=== PATIENT | male | born 1990 | race Two or more races ===

== ENCOUNTER 2023-01-05 21:50 | Inpatient (IN) | payer MEDICAID, OTHER ==
[~2023-01-05] VITALS: Ht 177.8 cm; Wt 63.0 kg
[2023-01-05] MEDS ORDERED: SODIUM CHLORIDE 0.9% 1,000 ML IV ONE ×2 (22:30)
[2023-01-05] MEDS ORDERED: DEXTROSE (50%) 50ML SYRG IV PRN (22:30)
[2023-01-05] MEDS ORDERED: INSULIN LANTUS (GLARGINE) 1 /0.01ml (100units/ml) SC ONE (22:30)
[2023-01-05] MEDS ORDERED: ONDANSETRON HCL 4 MG/2 ML VIAL IV ONE (22:30)
[2023-01-05] MEDS ORDERED: ACCU-CHEK COMFORT CURVE STRIP VI SCH (22:30)
[2023-01-05 22:54] LABS: Basophils # (auto) 0.1 10 ^3/uL (0-0.2); Basophils % (auto) 0.3 % (0.0-2.0); Eosinophils # (auto) 0 10 ^3/uL (0-0.8); Hematocrit 40.4 % (41.0-53.0); Hemoglobin 13.2 g/dL (13.5-17.5); Lymphocytes # (auto) 0.4 10 ^3/uL (0.4-5.4); Lymphocytes % (auto) 2.4 % (10.0-50.0); Mean Corpuscular Hemoglobin 29.9 pg (28.0-32.0); Mean Corpuscular Hgb Conc. 32.6 g/dL (32.0-36.0); Mean Corpuscular Volume 91.8 fL (80.0-100.0); Neutrophils # (auto) 14.3 10 ^3/uL (1.6-8.6); Neutrophils % (auto) 85.3 % (37.0-80.0); Nucleated Red Blood Cells % 0.1 %; Red Cell Distribution Width 15.7 % (11.8-14.3); White Blood Cell 16.8 10^3/uL (4.4-10.8)
[2023-01-05] MEDS ORDERED: SODIUM BICARBONATE 8.4 % INJ 50ML VIAL IV ONE ×2 (23:00)
[2023-01-05 23:08] LABS: Urine Bacteria NONE SEEN /hpf (None Seen); Urine Blood 1+ /uL (Negative); Urine Hyaline Cast FEW /lpf (0 - 2); Urine Mucus FEW (None Seen); Urine Specific Gravity 1.014 (1.001-1.035); Urine WBC 18 /hpf (0 - 3)
[2023-01-05 23:10] LABS: Albumin 3.8 g/dL (3.4-5.0); Calcium 6.9 mg/dL (8.5-10.1); Magnesium 2.4 mg/dL (1.6-2.6); Potassium 4.5 mmol/L (3.5-5.1)
[2023-01-05 23:14] LABS: BUN/Creatinine Ratio 19.7 (10.0-20.0); Bilirubin, Total 0.7 mg/dL (0.2-1.0); Phosphorus 4.8 mg/dL (2.5-4.90); Total Protein 7.8 g/dL (6.4-8.2)
[2023-01-05] MEDS ORDERED: InsuLIN REG 1unit/0.01ml Soln (100units/ml) ONE (23:19)
[2023-01-05] MEDS: InsuLIN R (HUMAN) 100 UNITS in SODIUM CHL 0.9% 99 ML IV SCH (23:24)
[2023-01-06] VITALS (13 sets, daily range): BP systolic 105–138; BP diastolic 71–105
[2023-01-06] MEDS: SODIUM CHLORIDE 0.9% 1,000 ML IV SCH ×2 (00:17→01:14)
[2023-01-06] MEDS: ACCU-CHEK COMFORT CURVE STRIP VI SCH ×16 (01:00→23:42)
[2023-01-06] MEDS ORDERED: NITROGLYCERIN 0.4 MG SL TAB SL PRN (01:15)
[2023-01-06] MEDS ORDERED: ONDANSETRON HCL 4 MG/2 ML VIAL IV PRN (01:15)
[2023-01-06] MEDS ORDERED: MORPHINE SULFATE INJ 2 MG/ml SYRG IV PRN (01:15)
[2023-01-06] MEDS ORDERED: SODIUM CHLORIDE 0.9% 1,000 ML IV SCH ×2 (02:30→04:30)
[2023-01-06] MEDS ORDERED: SODIUM BICARBONATE 8.4 % INJ 50ML VIAL IV ONE ×2 (04:28→09:15)
[2023-01-06] MEDS ORDERED: SODIUM BICARBONATE 50ML VIAL 100 ML in SOD CHL 0.45% 1,000 ML IV ONE (04:30)
[2023-01-06 06:47] LABS: BUN/Creatinine Ratio 17.6 (10.0-20.0); Calcium 7.6 mg/dL (8.5-10.1); Potassium 3.7 mmol/L (3.5-5.1)
[2023-01-06] MEDS ORDERED: D5W/SOD CHL 0.45% 1,000 ML IV ONE (08:30)
[2023-01-06] MEDS: InsuLIN R (HUMAN) 100 UNITS in SODIUM CHL 0.9% 99 ML IV SCH ×7 (08:30→23:40)
[2023-01-06] MEDS ORDERED: SODIUM BICARBONATE 50ML VIAL 50 ML in SOD CHL 0.45% 1,000 ML IV SCH (09:15)
[2023-01-06] MEDS: SODIUM BICARBONATE 50ML VIAL 50 ML in SOD CHL 0.45% 1,000 ML IV SCH ×3 (09:18→23:51)
[2023-01-06] MEDS ORDERED: INSULIN LANTUS (GLARGINE) 1 /0.01ml (100units/ml) SC SCH (10:00)
[2023-01-06] MEDS: PANTOPRAZOLE 40 MG/10 ML VIAL INJ IV SCH (10:54)
[2023-01-06 11:25] LABS: BUN/Creatinine Ratio 18.3 (10.0-20.0); Calcium 7.4 mg/dL (8.5-10.1)
[2023-01-06] MEDS ORDERED: POTASSIUM CHL 20 Meq TABLET PO ONE (13:45)
[2023-01-06 18:28] LABS: BUN/Creatinine Ratio 12.7 (10.0-20.0); Calcium 7.5 mg/dL (8.5-10.1)
[2023-01-06 19:11] LABS: Potassium 2.3 mmol/L (3.5-5.1)
[2023-01-06] MEDS ORDERED: POTASSIUM CHLORIDE 80 MEQ, LIDOCAINE 1% (LOCAL ANESTH.) 6 ML in SODIUM CHL 0.9% 500 ML IV ONE (19:30)
[2023-01-07] VITALS (25 sets, daily range): BP systolic 116–144; BP diastolic 72–101
[2023-01-07] MEDS: ACCU-CHEK COMFORT CURVE STRIP VI SCH ×6 (01:00→15:37)
[2023-01-07 04:43] LABS: Albumin 2.9 g/dL (3.4-5.0); Calcium 7.5 mg/dL (8.5-10.1); Potassium 3.2 mmol/L (3.5-5.1)
[2023-01-07 04:46] LABS: BUN/Creatinine Ratio 10.5 (10.0-20.0); Bilirubin, Total 0.7 mg/dL (0.2-1.0)
[2023-01-07] MEDS ORDERED: POTASSIUM CHL 20 Meq TABLET PO ONE (05:45)
[2023-01-07] MEDS ORDERED: DEXTROSE (50%) 50ML SYRG IV PRN (05:45)
[2023-01-07 06:40] LABS: Basophils # (auto) 0 10 ^3/uL (0-0.2); Basophils % (auto) 0.2 % (0.0-2.0); Eosinophils # (auto) 0 10 ^3/uL (0-0.8); Hematocrit 32.3 % (41.0-53.0); Hemoglobin 11.4 g/dL (13.5-17.5); Lymphocytes # (auto) 0.5 10 ^3/uL (0.4-5.4); Lymphocytes % (auto) 8.8 % (10.0-50.0); Mean Corpuscular Hemoglobin 29.8 pg (28.0-32.0); Mean Corpuscular Hgb Conc. 35.3 g/dL (32.0-36.0); Mean Corpuscular Volume 84.6 fL (80.0-100.0); Monocytes # (auto) 0.4 10 ^3/uL (0-1.3); Monocytes % (auto) 6.8 % (0.0-12.0); Neutrophils # (auto) 4.5 10 ^3/uL (1.6-8.6); Neutrophils % (auto) 84.2 % (37.0-80.0); Nucleated Red Blood Cells % 0.1 %; Red Blood Cells 3.82 10^6/uL (4.5-5.90); White Blood Cell 5.4 10^3/uL (4.4-10.8)
[2023-01-07] MEDS: InsuLIN REG 1unit/0.01ml Soln (100units/ml) SC SCH ×3 (09:01→15:40)
[2023-01-07] MEDS: PANTOPRAZOLE 40 MG/10 ML VIAL INJ IV SCH (09:57)
== END 2023-01-07 17:25 | disposition home or self-care (01) | DRG 420 ==
LOC: EDBD 21:50 → ER 21:56 → TELE 01-06 03:44 → ICU WEST 01-06 17:25
PROVIDERS: ADMIT Nurse Practitioner; ATTEND Internal Medicine
DX: E11.10 Type 2 diabetes mellitus with ketoacidosis without coma (principal); N17.9 Acute kidney failure, unspecified; E86.0 Dehydration; Z91.199 Patient's noncompliance with other medical treatment and regimen due to unspecified reason
CPT/HCPCS: 36415; 36600; 80048; 80053; 81001; 82010; 82805; 82962; 83690; 83735; 83930; 84100; 85025; 87081; 96361; 96374; 96375; 99291; C9113; G0378; J1815; J2001; J2405

== ENCOUNTER 2023-04-28 13:03 | Inpatient (IN) | payer MEDICAID ==
[~2023-04-28] VITALS: Ht 165.1 cm; Wt 64.4 kg
[2023-04-28 13:25] VITALS: PULSE 124; RESP 25; O2SAT 100
[2023-04-28] MEDS ORDERED: ACCU-CHEK COMFORT CURVE STRIP VI ONE (13:30)
[2023-04-28] MEDS ORDERED: INSULIN LANTUS (GLARGINE) 1 /0.01ml (100units/ml) SC ONE (14:00)
[2023-04-28] MEDS ORDERED: ONDANSETRON HCL 4 MG/2 ML VIAL IM ONE (14:00)
[2023-04-28] MEDS ORDERED: InsuLIN R (HUMAN) 100 UNITS in SODIUM CHL 0.9% 99 ML IV SCH (14:00)
[2023-04-28] MEDS ORDERED: DEXTROSE (50%) 50ML SYRG IV PRN ×2 (14:00→17:15)
[2023-04-28] MEDS ORDERED: SODIUM CHLORIDE 0.9% 2,000 ML IV ONE ×2 (14:00→16:45)
[2023-04-28 14:01] LABS: Basophils # (auto) 0.2 10 ^3/uL (0-0.2); Basophils % (auto) 1.3 % (0.0-2.0); Eosinophils # (auto) 0 10 ^3/uL (0-0.8); Hematocrit 45.2 % (41.0-53.0); Lymphocytes # (auto) 0.2 10 ^3/uL (0.4-5.4); Lymphocytes % (auto) 1.2 % (10.0-50.0); Mean Corpuscular Hemoglobin 31.7 pg (28.0-32.0); Mean Corpuscular Hgb Conc. 33.3 g/dL (32.0-36.0); Mean Corpuscular Volume 95.3 fL (80.0-100.0); Monocytes # (auto) 1.2 10 ^3/uL (0-1.3); Monocytes % (auto) 8.1 % (0.0-12.0); Neutrophils # (auto) 12.7 10 ^3/uL (1.6-8.6); Neutrophils % (auto) 89.4 % (37.0-80.0); Red Blood Cells 4.74 10^6/uL (4.5-5.90); Red Cell Distribution Width 15.5 % (11.8-14.3); White Blood Cell 14.2 10^3/uL (4.4-10.8)
[2023-04-28 14:16] LABS: Alanine Aminotransferase 99 U/L (7-40); Albumin 5.8 g/dL (3.2-4.8); Alkaline Phosphatase 132 U/L (46-116); Anion Gap 30.00001 (5-15); Aspartate Aminotransferase 43 U/L (13-40); BUN/Creatinine Ratio 15.2 (10.0-20.0); Bilirubin, Total 1.1 mg/dL (0.2-1.0); Blood Alcohol < 3.0 mg/dL (<10); Blood Urea Nitrogen 32 mg/dL (9-23); Calcium 8.8 mg/dL (8.7-10.4); Chloride 88 mmol/L (98-107); Potassium 5.2 mmol/L (3.5-5.1); Sodium 128 mmol/L (136-145); Total Protein 8.4 g/dL (5.7-8.2)
[2023-04-28 14:49] LABS: Carbon Dioxide < 10 mmol/L (20-30); Glucose 593 mg/dL (74-106)
[2023-04-28] MEDS: ACCU-CHEK COMFORT CURVE STRIP VI SCH ×7 (15:27→22:26)
[2023-04-28] MEDS ORDERED: DOCUSATE SOD 100 MG CAP PO PRN (17:15)
[2023-04-28] MEDS ORDERED: ONDANSETRON HCL 4 MG/2 ML VIAL IV PRN (17:15)
[2023-04-28] MEDS ORDERED: LORazepam 2MG/ML-1ML VIAL IV PRN (17:15)
[2023-04-28] MEDS ORDERED: MORPHINE SULFATE INJ 2 MG/ml SYRG IV PRN (17:15)
[2023-04-28 17:37] LABS: Urine Bacteria NONE SEEN /hpf (None Seen); Urine Blood TRACE /uL (Negative); Urine Clarity Clear (Clear); Urine Color Colorless (Yellow); Urine Protein, UAD 1+ (Negative); Urine Specific Gravity 1.016 (1.001-1.035); Urine Urobilinogen Normal (Negative); Urine WBC 1 /hpf (0 - 3)
[2023-04-28] MEDS: chlordiazePOXIDE HCL 25 MG CAP PO SCH (17:52)
[2023-04-28 17:59] LABS: Amphetamine Screen, Urine Neg (NEGATIVE); Barbiturate Scree,Urine Neg (NEGATIVE); Benzodiazephine Screen, Urine Neg (NEGATIVE); Cocaine Screen, Urine Neg (NEGATIVE)
[2023-04-28 18:00] LABS: Creatinine, Urine 22.02 mg/dL (30.0-125.0)
[2023-04-28 18:00] LABS: Cannabinoid Screen, Urine Neg (NEGATIVE); Opiate Scree,Urine Neg (NEGATIVE); Phencyclidine Screen, Urine Neg (NEGATIVE)
[2023-04-28 18:35] LABS: Blood Alcohol < 3.0 mg/dL (<10); Magnesium 2.4 mg/dL (1.6-2.6)
[2023-04-28 18:36] LABS: Phosphorus 3.5 mg/dL (2.4-5.1)
[2023-04-28 18:43] LABS: Chloride 99 mmol/L (98-107); Potassium 4.1 mmol/L (3.5-5.1)
[2023-04-28 18:44] LABS: Anion Gap 26.00001 (5-15)
[2023-04-28 18:45] LABS: Calcium 8.8 mg/dL (8.7-10.4)
[2023-04-28 18:50] LABS: BUN/Creatinine Ratio 9.8 (10.0-20.0); Blood Urea Nitrogen 19 mg/dL (9-23)
[2023-04-28] MEDS: SODIUM CHLORIDE 0.9% 1,000 ML IV SCH ×4 (18:55→22:22)
[2023-04-28 19:04] LABS: Glucose 312 mg/dL (74-106); Sodium 135 mmol/L (136-145)
[2023-04-28 19:05] LABS: Carbon Dioxide < 10 mmol/L (20-30)
[2023-04-28 19:32] LABS: INR 0.97 (0.9-1.15); Prothrombin Time 10.2 sec (9.3-11.8)
[2023-04-28 19:53] LABS: Base Excess -20.2 mmol/L (-2.0-2.0)
[2023-04-28] MEDS ORDERED: SODIUM BICARBONATE 8.4 % INJ 50ML VIAL IV ONE ×2 (20:00)
[2023-04-28] MEDS ORDERED: D5W/SOD CHLO 0.9% 1,000 ML IV SCH (20:15)
[2023-04-28 20:30] VITALS: PULSE 104; RESP 19; O2SAT 96
[2023-04-28] MEDS ORDERED: SODIUM BICARBONATE 50ML VIAL 150 ML in SOD CHL 0.45% 1,000 ML IV SCH (20:30)
[2023-04-28] MEDS ORDERED: SODIUM CHLORIDE 0.9% 1,000 ML IV SCH ×2 (21:15→23:15)
[2023-04-28 23:16] LABS: Anion Gap 20 (5-15); Carbon Dioxide 13 mmol/L (20-30); Sodium 142 mmol/L (136-145)
[2023-04-28 23:17] LABS: Calcium 8.2 mg/dL (8.7-10.4)
[2023-04-28 23:18] LABS: Base Excess -10.7 mmol/L (-2.0-2.0)
[2023-04-28 23:22] LABS: BUN/Creatinine Ratio 14.4 (10.0-20.0); Blood Urea Nitrogen 21 mg/dL (9-23)
[2023-04-28 23:26] LABS: Chloride 109 mmol/L (98-107); Glucose 187 mg/dL (74-106)
[2023-04-29] VITALS (24 sets, daily range): BP systolic 105–136; BP diastolic 66–87; PULSE 65–108; RESP 10–21; TEMP 97.8; O2SAT 98–100
[2023-04-29] MEDS ORDERED: DEXTROSE (50%) 50ML SYRG IV PRN ×2 (00:15→01:00)
[2023-04-29] MEDS: ACCU-CHEK COMFORT CURVE STRIP VI SCH ×15 (01:13→22:30)
[2023-04-29] MEDS: InsuLIN R (HUMAN) 100 UNITS in SODIUM CHL 0.9% 99 ML IV SCH ×2 (01:20→07:30)
[2023-04-29] MEDS: chlordiazePOXIDE HCL 25 MG CAP PO SCH ×4 (01:20→21:35)
[2023-04-29] MEDS: SODIUM CHLORIDE 0.9% 1,000 ML IV SCH ×2 (01:30→03:42)
[2023-04-29] MEDS ORDERED: ACCU-CHEK COMFORT CURVE STRIP VI SCH (04:00)
[2023-04-29] MEDS ORDERED: InsuLIN REG 1unit/0.01ml Soln (100units/ml) SC SCH (04:00)
[2023-04-29 05:21] LABS: Basophils # (auto) 0 10 ^3/uL (0-0.2); Basophils % (auto) 0.4 % (0.0-2.0); Eosinophils # (auto) 0 10 ^3/uL (0-0.8); Hematocrit 37.6 % (41.0-53.0); Hemoglobin 12.9 g/dL (13.5-17.5); Lymphocytes # (auto) 0.2 10 ^3/uL (0.4-5.4); Lymphocytes % (auto) 2.5 % (10.0-50.0); Mean Corpuscular Hemoglobin 31.5 pg (28.0-32.0); Mean Corpuscular Hgb Conc. 34.4 g/dL (32.0-36.0); Mean Corpuscular Volume 91.8 fL (80.0-100.0); Monocytes # (auto) 0.7 10 ^3/uL (0-1.3); Monocytes % (auto) 7.7 % (0.0-12.0); Neutrophils # (auto) 7.6 10 ^3/uL (1.6-8.6); Neutrophils % (auto) 89.4 % (37.0-80.0); Red Blood Cells 4.09 10^6/uL (4.5-5.90); Red Cell Distribution Width 15.4 % (11.8-14.3); White Blood Cell 8.5 10^3/uL (4.4-10.8)
[2023-04-29 05:39] LABS: Alanine Aminotransferase 64 U/L (7-40); Alkaline Phosphatase 89 U/L (46-116); Anion Gap 17 (5-15); Aspartate Aminotransferase 26 U/L (13-40); BUN/Creatinine Ratio 12.6 (10.0-20.0); Blood Urea Nitrogen 16 mg/dL (9-23); Calcium 8.6 mg/dL (8.7-10.4); Carbon Dioxide 16 mmol/L (20-30); Chloride 112 mmol/L (98-107); Glucose 127 mg/dL (74-106); Sodium 145 mmol/L (136-145)
[2023-04-29 05:40] LABS: Albumin 4.7 g/dL (3.2-4.8); Bilirubin, Total 0.8 mg/dL (0.2-1.0)
[2023-04-29 05:58] LABS: Potassium 2.9 mmol/L (3.5-5.1)
[2023-04-29] MEDS: POTASSIUM CHL 20MEQ/100ML 100 ML IV SCH ×5 (07:51→23:15)
[2023-04-29] MEDS ORDERED: INSULIN LANTUS (GLARGINE) 1 /0.01ml (100units/ml) SC SCH (10:00)
[2023-04-29] MEDS: PANTOPRAZOLE 40 MG/10 ML VIAL INJ IV SCH (10:24)
[2023-04-29] MEDS: D5W/SOD CHL 0.45% 1,000 ML IV SCH ×2 (11:42→20:15)
[2023-04-29] MEDS: FOLIC ACID 1 MG, MULTIPLE VITAMIN 10 ML, MAGNESIUM SULF SDV 50% 8 MEQ, THIAMINE INJ 100... INJ SCH ×5 (12:00)
[2023-04-29 12:07] LABS: Hepatitis B Surface Antigen Negative (Negative)
[2023-04-29 12:28] LABS: Hepatitis A Ab IgM Negative
[2023-04-29 12:29] LABS: Hepatitis B Core IgM Negative; Hepatitis C Antibody Negative (Negative)
[2023-04-29 12:45] LABS: Chloride 116 mmol/L (98-107); Potassium 3.4 mmol/L (3.5-5.1); Sodium 146 mmol/L (136-145)
[2023-04-29 12:46] LABS: Anion Gap 17 (5-15); Calcium 8.4 mg/dL (8.7-10.4); Carbon Dioxide 13 mmol/L (20-30)
[2023-04-29 12:51] LABS: BUN/Creatinine Ratio 10.5 (10.0-20.0); Blood Urea Nitrogen 12 mg/dL (9-23); Glucose 140 mg/dL (74-106)
[2023-04-29 18:45] LABS: Chloride 114 mmol/L (98-107); Sodium 146 mmol/L (136-145)
[2023-04-29 18:46] LABS: Anion Gap 16 (5-15); Calcium 8.9 mg/dL (8.7-10.4); Carbon Dioxide 16 mmol/L (20-30)
[2023-04-29 18:51] LABS: Blood Urea Nitrogen 10 mg/dL (9-23); Glucose 178 mg/dL (74-106)
[2023-04-29 18:54] LABS: Potassium 2.9 mmol/L (3.5-5.1)
[2023-04-29 19:39] LABS: Base Excess -13.3 mmol/L (-2.0-2.0)
[2023-04-29 19:52] LABS: Magnesium 2.1 mg/dL (1.6-2.6)
[2023-04-29 19:54] LABS: Phosphorus 0.7 mg/dL (2.4-5.1)
[2023-04-29 22:17] LABS: Chloride 115 mmol/L (98-107); Sodium 146 mmol/L (136-145)
[2023-04-29 22:18] LABS: Anion Gap 15 (5-15); Carbon Dioxide 16 mmol/L (20-30)
[2023-04-29 22:19] LABS: Calcium 8.9 mg/dL (8.7-10.4)
[2023-04-29 22:23] LABS: BUN/Creatinine Ratio 6.5 (10.0-20.0); Blood Urea Nitrogen 7 mg/dL (9-23); Glucose 188 mg/dL (74-106)
[2023-04-29 22:49] LABS: Potassium 2.8 mmol/L (3.5-5.1)
[2023-04-29] MEDS ORDERED: POTASSIUM PHOSPHATE 22 MEQ in SODIUM CHL 0.9% 100 ML IV ONE (23:00)
[2023-04-29] MEDS ORDERED: POTASSIUM PHOSPHATE IV ONE ×4 (23:15)
[2023-04-29] MEDS ORDERED: SODIUM CHL 0.9% IV ONE ×4 (23:15)
[2023-04-30] VITALS (47 sets, daily range): BP systolic 96–140; BP diastolic 51–97; PULSE 56–85; RESP 10–30; TEMP 97.9–98.8; O2SAT 94–100
[2023-04-30] MEDS: ACCU-CHEK COMFORT CURVE STRIP VI SCH ×16 (01:30→22:35)
[2023-04-30] MEDS: InsuLIN R (HUMAN) 100 UNITS in SODIUM CHL 0.9% 99 ML IV SCH (02:00)
[2023-04-30] MEDS: D5W/SOD CHL 0.45% 1,000 ML IV SCH ×3 (03:15→20:16)
[2023-04-30 05:13] LABS: Anion Gap 13 (5-15); Carbon Dioxide 19 mmol/L (20-30); Chloride 114 mmol/L (98-107); Sodium 146 mmol/L (136-145)
[2023-04-30 05:15] LABS: Calcium 8.8 mg/dL (8.7-10.4)
[2023-04-30 05:18] LABS: Basophils # (auto) 0 10 ^3/uL (0-0.2); Eosinophils # (auto) 0 10 ^3/uL (0-0.8); Monocytes # (auto) 0.5 10 ^3/uL (0-1.3); Neutrophils # (auto) 4.4 10 ^3/uL (1.6-8.6)
[2023-04-30 05:19] LABS: BUN/Creatinine Ratio 7.3 (10.0-20.0); Blood Urea Nitrogen 7 mg/dL (9-23); Glucose 184 mg/dL (74-106)
[2023-04-30 05:20] LABS: Magnesium 1.9 mg/dL (1.6-2.6)
[2023-04-30 05:21] LABS: Basophils % (auto) 0.2 % (0.0-2.0); Eosinophils % (auto) 0.2 % (0.0-7.0); Hematocrit 35.5 % (41.0-53.0); Hemoglobin 12.2 g/dL (13.5-17.5); Lymphocytes # (auto) 0.3 10 ^3/uL (0.4-5.4); Lymphocytes % (auto) 6.7 % (10.0-50.0); Mean Corpuscular Hemoglobin 31.6 pg (28.0-32.0); Mean Corpuscular Hgb Conc. 34.3 g/dL (32.0-36.0); Monocytes % (auto) 9.2 % (0.0-12.0); Neutrophils % (auto) 83.7 % (37.0-80.0); Nucleated Red Blood Cells % 0.2 %; Red Blood Cells 3.86 10^6/uL (4.5-5.90); White Blood Cell 5.2 10^3/uL (4.4-10.8)
[2023-04-30 05:22] LABS: Phosphorus 0.7 mg/dL (2.4-5.1)
[2023-04-30] MEDS ORDERED: SODIUM CHL 0.9% IV ONE (09:00)
[2023-04-30] MEDS ORDERED: POTASSIUM CHL 20MEQ/100ML 100 ML IV ONE (09:00)
[2023-04-30] MEDS ORDERED: POTASSIUM PHOSPHATE IV ONE (09:00)
[2023-04-30] MEDS ORDERED: chlordiazePOXIDE HCL 25 MG CAP PO SCH (10:00)
[2023-04-30] MEDS: PANTOPRAZOLE 40 MG/10 ML VIAL INJ IV SCH (10:14)
[2023-04-30 10:52] LABS: Calcium 8.6 mg/dL (8.5-10.1); Carbon Dioxide 19 mmol/L (20-30)
[2023-04-30 10:58] LABS: BUN/Creatinine Ratio 7.2 (10.0-20.0); Blood Urea Nitrogen 6 mg/dL (9-23); Glucose 196 mg/dL (74-106)
[2023-04-30 11:36] LABS: Anion Gap 13 (5-15); Chloride 114 mmol/L (98-107); Sodium 146 mmol/L (136-145)
[2023-04-30 12:33] LABS: Potassium 2.7 mmol/L (3.5-5.1)
[2023-04-30] MEDS: FOLIC ACID 1 MG, MULTIPLE VITAMIN 10 ML, MAGNESIUM SULF SDV 50% 8 MEQ, THIAMINE INJ 100... INJ SCH ×5 (12:53)
[2023-04-30] MEDS ORDERED: POTASSIUM CHL 20MEQ/100ML 100 ML IV SCH (13:30)
[2023-04-30] MEDS: POTASSIUM CHL 20MEQ/100ML 100 ML IV SCH ×2 (13:39→15:31)
[2023-04-30] MEDS: GABAPENTIN 300 MG CAP PO SCH ×2 (14:09→22:35)
[2023-04-30 14:49] LABS: Carbon Dioxide 20 mmol/L (20-30)
[2023-04-30 14:50] LABS: Calcium 8.4 mg/dL (8.5-10.1)
[2023-04-30 14:54] LABS: BUN/Creatinine Ratio 8.1 (10.0-20.0); Blood Urea Nitrogen 6 mg/dL (9-23); Glucose 156 mg/dL (74-106)
[2023-04-30 15:12] LABS: Anion Gap 11 (5-15); Chloride 115 mmol/L (98-107); Potassium 3.1 mmol/L (3.5-5.1); Sodium 146 mmol/L (136-145)
[2023-04-30 18:51] LABS: Chloride 113 mmol/L (98-107); Potassium 3.2 mmol/L (3.5-5.1); Sodium 144 mmol/L (136-145)
[2023-04-30 18:52] LABS: Anion Gap 13 (5-15); Calcium 8.7 mg/dL (8.7-10.4); Carbon Dioxide 18 mmol/L (20-30)
[2023-04-30 18:57] LABS: BUN/Creatinine Ratio 6.3 (10.0-20.0); Blood Urea Nitrogen 5 mg/dL (9-23); Glucose 165 mg/dL (74-106)
[2023-04-30 22:18] LABS: Chloride 115 mmol/L (98-107); Sodium 144 mmol/L (136-145)
[2023-04-30 22:19] LABS: Anion Gap 10 (5-15); Carbon Dioxide 19 mmol/L (20-30)
[2023-04-30 22:20] LABS: Calcium 8.8 mg/dL (8.7-10.4)
[2023-04-30 22:24] LABS: Glucose 160 mg/dL (74-106)
[2023-04-30 22:25] LABS: BUN/Creatinine Ratio 6.2 (10.0-20.0); Blood Urea Nitrogen < 5 mg/dL (9-23)
[2023-05-01] VITALS (24 sets, daily range): BP systolic 106–139; BP diastolic 64–99; PULSE 55–90; RESP 10–19; TEMP 97.8–98.9; O2SAT 91–100
[2023-05-01] MEDS: ACCU-CHEK COMFORT CURVE STRIP VI SCH ×10 (00:46→22:31)
[2023-05-01 01:10] LABS: Chloride 114 mmol/L (98-107); Sodium 145 mmol/L (136-145)
[2023-05-01 01:11] LABS: Anion Gap 13 (5-15); Calcium 8.6 mg/dL (8.7-10.4); Carbon Dioxide 18 mmol/L (20-30)
[2023-05-01 01:16] LABS: BUN/Creatinine Ratio 7.2 (10.0-20.0); Blood Urea Nitrogen 6 mg/dL (9-23); Glucose 211 mg/dL (74-106)
[2023-05-01] MEDS: D5W/SOD CHL 0.45% 1,000 ML IV SCH ×3 (03:45→20:16)
[2023-05-01 04:59] LABS: Basophils # (auto) 0 10 ^3/uL (0-0.2); Eosinophils # (auto) 0 10 ^3/uL (0-0.8); Eosinophils % (auto) 0.7 % (0.0-7.0); Hemoglobin 12.9 g/dL (13.5-17.5); Lymphocytes # (auto) 0.6 10 ^3/uL (0.4-5.4); Monocytes # (auto) 0.4 10 ^3/uL (0-1.3); Nucleated Red Blood Cells % 0.1 %; Red Cell Distribution Width 15.9 % (11.8-14.3)
[2023-05-01 05:01] LABS: Basophils % (auto) 0.3 % (0.0-2.0); Hematocrit 37.3 % (41.0-53.0); Lymphocytes % (auto) 15.2 % (10.0-50.0); Mean Corpuscular Hemoglobin 31.4 pg (28.0-32.0); Mean Corpuscular Hgb Conc. 34.5 g/dL (32.0-36.0); Monocytes % (auto) 10.1 % (0.0-12.0); Neutrophils # (auto) 2.7 10 ^3/uL (1.6-8.6); Neutrophils % (auto) 73.7 % (37.0-80.0); White Blood Cell 3.7 10^3/uL (4.4-10.8)
[2023-05-01 05:05] LABS: Chloride 113 mmol/L (98-107); Sodium 144 mmol/L (136-145)
[2023-05-01 05:06] LABS: Anion Gap 11 (5-15); Carbon Dioxide 20 mmol/L (20-30)
[2023-05-01 05:07] LABS: Calcium 8.6 mg/dL (8.7-10.4)
[2023-05-01 05:11] LABS: Glucose 249 mg/dL (74-106)
[2023-05-01 05:14] LABS: Phosphorus 1.5 mg/dL (2.4-5.1)
[2023-05-01 05:23] LABS: BUN/Creatinine Ratio 6.2 (10.0-20.0); Blood Urea Nitrogen < 5 mg/dL (9-23); Potassium 2.9 mmol/L (3.5-5.1)
[2023-05-01 05:34] LABS: Triglycerides 118 mg/dL (< 150)
[2023-05-01 05:35] LABS: LDL Cholesterol 105 mg/dL (< 100)
[2023-05-01 05:36] LABS: Cholesterol 191 mg/dL (< 200); HDL Cholesterol 59 mg/dL (40-59)
[2023-05-01] MEDS: GABAPENTIN 300 MG CAP PO SCH ×3 (06:43→22:31)
[2023-05-01] MEDS ORDERED: chlordiazePOXIDE HCL 25 MG CAP PO SCH (07:00)
[2023-05-01] MEDS: POTASSIUM CHL 20MEQ/100ML 100 ML IV SCH ×3 (07:08→11:54)
[2023-05-01] MEDS: PANTOPRAZOLE 40 MG/10 ML VIAL INJ IV SCH (09:35)
[2023-05-01] MEDS ORDERED: MAALOX PLUS or MAALOX 30 ML PO PRN (10:45)
[2023-05-01 10:57] LABS: Chloride 113 mmol/L (98-107); Potassium 3.1 mmol/L (3.5-5.1); Sodium 144 mmol/L (136-145)
[2023-05-01 10:58] LABS: Anion Gap 9 (5-15); Carbon Dioxide 22 mmol/L (20-30)
[2023-05-01 10:59] LABS: Calcium 8.6 mg/dL (8.7-10.4)
[2023-05-01 11:03] LABS: Glucose 236 mg/dL (74-106)
[2023-05-01 11:04] LABS: BUN/Creatinine Ratio 6.2 (10.0-20.0); Blood Urea Nitrogen < 5 mg/dL (9-23)
[2023-05-01] MEDS ORDERED: DEXTROSE (50%) 50ML SYRG IV PRN (11:15)
[2023-05-01] MEDS ORDERED: INSULIN LANTUS (GLARGINE) 1 /0.01ml (100units/ml) SC ONE (11:30)
[2023-05-01] MEDS: InsuLIN REG 1unit/0.01ml Soln (100units/ml) SC SCH ×2 (11:42→17:03)
[2023-05-01] MEDS: FOLIC ACID 1 MG, MULTIPLE VITAMIN 10 ML, MAGNESIUM SULF SDV 50% 8 MEQ, THIAMINE INJ 100... INJ SCH ×5 (11:43)
[2023-05-01] MEDS ORDERED: INSULIN LANTUS (GLARGINE) 1 /0.01ml (100units/ml) SC SCH (22:00)
[2023-05-01] MEDS ORDERED: InsuLIN REG 1unit/0.01ml Soln (100units/ml) SC SCH (22:00)
[2023-05-02] VITALS (14 sets, daily range): BP systolic 104–141; BP diastolic 67–103; PULSE 57–90; RESP 8–22; TEMP 97.5–98.4; O2SAT 85–100
[2023-05-02] MEDS: D5W/SOD CHL 0.45% 1,000 ML IV SCH ×3 (03:15→22:11)
[2023-05-02 05:16] LABS: Basophils # (auto) 0 10 ^3/uL (0-0.2); Basophils % (auto) 0.3 % (0.0-2.0); Eosinophils # (auto) 0.1 10 ^3/uL (0-0.8); Eosinophils % (auto) 2.1 % (0.0-7.0); Hemoglobin 12.4 g/dL (13.5-17.5); Lymphocytes # (auto) 0.6 10 ^3/uL (0.4-5.4); Lymphocytes % (auto) 18.8 % (10.0-50.0); Mean Corpuscular Hemoglobin 31.1 pg (28.0-32.0); Mean Corpuscular Hgb Conc. 34.5 g/dL (32.0-36.0); Mean Corpuscular Volume 90.1 fL (80.0-100.0); Monocytes # (auto) 0.4 10 ^3/uL (0-1.3); Monocytes % (auto) 11.1 % (0.0-12.0); Neutrophils # (auto) 2.3 10 ^3/uL (1.6-8.6); Neutrophils % (auto) 67.7 % (37.0-80.0); Red Blood Cells 3.99 10^6/uL (4.5-5.90); Red Cell Distribution Width 16.1 % (11.8-14.3); White Blood Cell 3.4 10^3/uL (4.4-10.8)
[2023-05-02 05:30] LABS: Calcium 8.8 mg/dL (8.7-10.4); Chloride 111 mmol/L (98-107); Potassium 3.1 mmol/L (3.5-5.1); Sodium 142 mmol/L (136-145)
[2023-05-02 05:31] LABS: Anion Gap 7 (5-15); Carbon Dioxide 24 mmol/L (20-30)
[2023-05-02 05:36] LABS: BUN/Creatinine Ratio 8.5 (10.0-20.0); Blood Urea Nitrogen 7 mg/dL (9-23); Glucose 327 mg/dL (74-106)
[2023-05-02 05:37] LABS: Magnesium 2.1 mg/dL (1.6-2.6)
[2023-05-02 05:38] LABS: Phosphorus 1.5 mg/dL (2.4-5.1)
[2023-05-02] MEDS: GABAPENTIN 300 MG CAP PO SCH ×3 (06:19→22:08)
[2023-05-02] MEDS: ACCU-CHEK COMFORT CURVE STRIP VI SCH ×4 (06:53→22:10)
[2023-05-02] MEDS: InsuLIN REG 1unit/0.01ml Soln (100units/ml) SC SCH ×3 (06:54→17:00)
[2023-05-02] MEDS: PANTOPRAZOLE 40 MG/10 ML VIAL INJ IV SCH (09:21)
[2023-05-02] MEDS ORDERED: NEUTRA-PHOS TABLET PO ONE (09:30)
[2023-05-02] MEDS ORDERED: DEXTROSE (50%) 50ML SYRG IV PRN (09:30)
[2023-05-02] MEDS ORDERED: POTASSIUM CHL 20 Meq TABLET PO SCH (10:00)
[2023-05-02] MEDS ORDERED: POTASSIUM EFFERVESENT TAB 25 MEQ PO ONE (10:15)
[2023-05-02] MEDS: FOLIC ACID 1 MG, MULTIPLE VITAMIN 10 ML, MAGNESIUM SULF SDV 50% 8 MEQ, THIAMINE INJ 100... INJ SCH ×5 (12:13)
[2023-05-02] MEDS ORDERED: POTASSIUM PHOSPHATE 22 MEQ in SODIUM CHL 0.9% 100 ML IV ONE (16:15)
[2023-05-02] MEDS ORDERED: InsuLIN REG 1unit/0.01ml Soln (100units/ml) SC SCH (22:00)
[2023-05-02] MEDS ORDERED: INSULIN LANTUS (GLARGINE) 1 /0.01ml (100units/ml) SC SCH (22:00)
[2023-05-03] VITALS (8 sets, daily range): BP systolic 106–146; BP diastolic 71–90; PULSE 60–86; RESP 18–20; TEMP 97.6–98.1; O2SAT 94–100
[2023-05-03] MEDS: D5W/SOD CHL 0.45% 1,000 ML IV SCH ×3 (03:15→19:15)
[2023-05-03] MEDS: GABAPENTIN 300 MG CAP PO SCH ×3 (04:58→22:05)
[2023-05-03 06:30] LABS: Basophils # (auto) 0 10 ^3/uL (0-0.2); Basophils % (auto) 0.3 % (0.0-2.0); Eosinophils # (auto) 0.1 10 ^3/uL (0-0.8); Eosinophils % (auto) 2.2 % (0.0-7.0); Hematocrit 35.8 % (41.0-53.0); Hemoglobin 12.4 g/dL (13.5-17.5); Lymphocytes # (auto) 0.5 10 ^3/uL (0.4-5.4); Lymphocytes % (auto) 14.4 % (10.0-50.0); Mean Corpuscular Hemoglobin 31.2 pg (28.0-32.0); Mean Corpuscular Hgb Conc. 34.5 g/dL (32.0-36.0); Mean Corpuscular Volume 90.3 fL (80.0-100.0); Monocytes # (auto) 0.4 10 ^3/uL (0-1.3); Monocytes % (auto) 12.9 % (0.0-12.0); Neutrophils # (auto) 2.3 10 ^3/uL (1.6-8.6); Neutrophils % (auto) 70.2 % (37.0-80.0); Nucleated Red Blood Cells % 0.1 %; Red Blood Cells 3.97 10^6/uL (4.5-5.90); Red Cell Distribution Width 15.4 % (11.8-14.3); White Blood Cell 3.3 10^3/uL (4.4-10.8)
[2023-05-03 06:44] LABS: INR 0.98 (0.9-1.15); Partial Thromboplastin Time 21.8 SEC (24.5-34.5); Prothrombin Time 10.3 sec (9.3-11.8)
[2023-05-03] MEDS: ACCU-CHEK COMFORT CURVE STRIP VI SCH ×4 (06:44→22:08)
[2023-05-03] MEDS: InsuLIN REG 1unit/0.01ml Soln (100units/ml) SC SCH ×3 (06:45→17:00)
[2023-05-03 06:51] LABS: Anion Gap 6 (5-15); Carbon Dioxide 30 mmol/L (20-30); Chloride 104 mmol/L (98-107); Potassium 3.3 mmol/L (3.5-5.1); Sodium 140 mmol/L (136-145)
[2023-05-03 06:52] LABS: Calcium 9.1 mg/dL (8.7-10.4)
[2023-05-03 06:57] LABS: BUN/Creatinine Ratio 10.8 (10.0-20.0); Blood Urea Nitrogen 9 mg/dL (9-23); Glucose 318 mg/dL (74-106)
[2023-05-03 06:58] LABS: Magnesium 1.7 mg/dL (1.6-2.6)
[2023-05-03 06:59] LABS: Phosphorus 2.9 mg/dL (2.4-5.1)
[2023-05-03] MEDS ORDERED: POTASSIUM CHL 20MEQ/100ML 100 ML IV ONE (08:30)
[2023-05-03] MEDS ORDERED: diphenhdrAMINE HCL 50 MG/1 ML VL ONE (08:45)
[2023-05-03] MEDS ORDERED: LIDOCAINE VISCOUS 2% 15ML UD ONE (08:45)
[2023-05-03] MEDS ORDERED: BENZOCAINE (DENTAL) 20 % SPRAY 60ML MT ONE (08:46)
[2023-05-03 08:58] LABS: Hepatitis B Surface Antigen Negative (Negative)
[2023-05-03 09:19] LABS: Hepatitis C Antibody Negative (Negative)
[2023-05-03] MEDS: MIDAZOLAM HCL 5 MG/ML-1ML VIAL ONE ×3 (11:18→11:24)
[2023-05-03] MEDS: fentaNYL CITRATE 100 MCG/2 ML VL ONE ×2 (11:18→11:21)
[2023-05-03] MEDS ORDERED: fentaNYL CITRATE 100 MCG/2 ML VL ONE (11:28)
[2023-05-03] MEDS: INSULIN LANTUS (GLARGINE) 1 /0.01ml (100units/ml) SC SCH ×2 (12:00→22:08)
[2023-05-03] MEDS: SUCRALFATE 1 GM/10 ML ORAL SUSP PO SCH ×2 (18:33→22:05)
[2023-05-03] MEDS: PANTOPRAZOLE 40 MG/10 ML VIAL INJ IV SCH (22:05)
[2023-05-03] MEDS: FOLIC ACID 1 MG, MULTIPLE VITAMIN 10 ML, MAGNESIUM SULF SDV 50% 8 MEQ, THIAMINE INJ 100... INJ SCH ×5 (22:08)
[2023-05-04] MEDS: D5W/SOD CHL 0.45% 1,000 ML IV SCH ×2 (03:15→11:15)
[2023-05-04 05:00] VITALS: BP 121/74; PULSE 64; RESP 18; TEMP 98.2; O2SAT 99
[2023-05-04] MEDS: GABAPENTIN 300 MG CAP PO SCH ×2 (06:26→14:14)
[2023-05-04] MEDS: InsuLIN REG 1unit/0.01ml Soln (100units/ml) SC SCH ×3 (06:26→16:56)
[2023-05-04] MEDS: SUCRALFATE 1 GM/10 ML ORAL SUSP PO SCH ×3 (06:26→17:27)
[2023-05-04] MEDS: ACCU-CHEK COMFORT CURVE STRIP VI SCH ×3 (06:27→16:56)
[2023-05-04 06:49] LABS: Basophils # (auto) 0 10 ^3/uL (0-0.2); Basophils % (auto) 0.2 % (0.0-2.0); Eosinophils # (auto) 0.1 10 ^3/uL (0-0.8); Eosinophils % (auto) 4.2 % (0.0-7.0); Hematocrit 35.2 % (41.0-53.0); Hemoglobin 12.1 g/dL (13.5-17.5); Lymphocytes # (auto) 0.7 10 ^3/uL (0.4-5.4); Lymphocytes % (auto) 21.6 % (10.0-50.0); Mean Corpuscular Hemoglobin 31.3 pg (28.0-32.0); Mean Corpuscular Hgb Conc. 34.4 g/dL (32.0-36.0); Mean Corpuscular Volume 90.8 fL (80.0-100.0); Monocytes # (auto) 0.6 10 ^3/uL (0-1.3); Neutrophils # (auto) 1.7 10 ^3/uL (1.6-8.6); Neutrophils % (auto) 55.1 % (37.0-80.0); Nucleated Red Blood Cells % 0.2 %; Red Blood Cells 3.88 10^6/uL (4.5-5.90); Red Cell Distribution Width 15.5 % (11.8-14.3); White Blood Cell 3.1 10^3/uL (4.4-10.8)
[2023-05-04 06:53] LABS: Anion Gap 5 (5-15); Carbon Dioxide 32 mmol/L (20-30); Chloride 103 mmol/L (98-107); Potassium 3.3 mmol/L (3.5-5.1); Sodium 140 mmol/L (136-145)
[2023-05-04 06:54] LABS: Calcium 9.2 mg/dL (8.7-10.4)
[2023-05-04 06:59] LABS: BUN/Creatinine Ratio 8.7 (10.0-20.0); Blood Urea Nitrogen 6 mg/dL (9-23)
[2023-05-04 07:00] LABS: Glucose 190 mg/dL (74-106)
[2023-05-04 07:01] LABS: Phosphorus 3.4 mg/dL (2.4-5.1)
[2023-05-04 07:50] LABS: Monocytes % (auto) 18.9 % (0.0-12.0)
[2023-05-04 08:00] VITALS: PULSE 76; RESP 21; O2SAT 100
[2023-05-04] MEDS ORDERED: POTASSIUM EFFERVESENT TAB 25 MEQ PO ONE (08:45)
[2023-05-04 09:25] VITALS: BP 132/89; PULSE 76; RESP 21; TEMP 97.6; O2SAT 100
[2023-05-04] MEDS ORDERED: INSLANTI SC ×2 (10:10)
[2023-05-04] MEDS ORDERED: INSU1MIS44 XX ×2 (10:10)
[2023-05-04] MEDS ORDERED: SUCR1SUS26 PO (10:10)
[2023-05-04] MEDS ORDERED: PANT40TA2 PO (10:10)
[2023-05-04] MEDS ORDERED: INSLISPI SC ×2 (10:11)
[2023-05-04] MEDS: PANTOPRAZOLE 40 MG/10 ML VIAL INJ IV SCH (10:36)
[2023-05-04 12:25] VITALS: BP 122/85; PULSE 61; RESP 18; TEMP 97.9; O2SAT 100
[2023-05-04] MEDS: FOLIC ACID 1 MG, MULTIPLE VITAMIN 10 ML, MAGNESIUM SULF SDV 50% 8 MEQ, THIAMINE INJ 100... INJ SCH ×5 (13:04)
[2023-05-04] MEDS ORDERED: GABA-1250 PO (15:14)
[2023-05-04 16:35] VITALS: BP 115/78; PULSE 75; RESP 20; TEMP 98.2; O2SAT 98
[2023-05-04 17:05] VITALS: BP 115/78; PULSE 75; RESP 18; TEMP 98.2; O2SAT 98
== END 2023-05-04 17:35 | disposition home or self-care (01) | DRG 241 ==
LOC: ER 13:03 → EDBD 13:03 → TELE 17:11 → DOU IN ICU 04-29 17:43 → TELE-CENTR 05-02 15:31 → CENTRAL 05-02 21:45
PROVIDERS: ADMIT Internal Medicine; ATTEND Student in an Organized Health Care Education/Training Program
PROC: 0DB68ZX Excision of Stomach, Via Natural or Artificial Opening Endoscopic, Diagnostic (ICD-10-PCS; 2023-05-03)
PROC: 0DB38ZX Excision of Lower Esophagus, Via Natural or Artificial Opening Endoscopic, Diagnostic (ICD-10-PCS; 2023-05-03)
PROC: 0DB98ZX Excision of Duodenum, Via Natural or Artificial Opening Endoscopic, Diagnostic (ICD-10-PCS; principal; 2023-05-03 11:00)
DX: K26.9 Duodenal ulcer, unspecified as acute or chronic, without hemorrhage or perforation (principal); N17.0 Acute kidney failure with tubular necrosis; R57.1 Hypovolemic shock; E10.10 Type 1 diabetes mellitus with ketoacidosis without coma; D69.6 Thrombocytopenia, unspecified; E83.39 Other disorders of phosphorus metabolism; K22.10 Ulcer of esophagus without bleeding; K29.00 Acute gastritis without bleeding; K29.80 Duodenitis without bleeding; K44.9 Diaphragmatic hernia without obstruction or gangrene; K21.9 Gastro-esophageal reflux disease without esophagitis; R00.0 Tachycardia, unspecified; D72.829 Elevated white blood cell count, unspecified; R74.01 Elevation of levels of liver transaminase levels; K59.00 Constipation, unspecified; E86.0 Dehydration; E87.5 Hyperkalemia; E87.6 Hypokalemia; F10.129 Alcohol abuse with intoxication, unspecified; F10.139 Alcohol abuse with withdrawal, unspecified; Z91.199 Patient's noncompliance with other medical treatment and regimen due to unspecified reason; R07.89 Other chest pain
CPT/HCPCS: 36415; 36600; 43239; 70360; 71045; 76705; 80048; 80053; 80061; 80074; 80307; 80320; 81001; 82010; 82140; 82570; 82607; 82805; 82962; 83036; 83605; 83690; 83735; 83930; 83935; 84100; 84300; 84443; 84484; 85025; 85610; 85730; 86803; 86850; 86900; 86901; 87081; 87340; 93005; 93306; 96361; 96365; 96372; 99291; 99292; C9113; G0378; J1815; J2250; J2405; J3480; J7042

== ENCOUNTER 2023-07-03 19:10 | Inpatient (IN) | payer MEDICAID ==
[~2023-07-03] VITALS: Ht 170.2 cm; Wt 80.0 kg
[~2023-07-03 19:10] MED LIST: GABA-1250 PO; PANT40TA2 PO; SUCR1SUS26 PO
[2023-07-03] MEDS ORDERED: ONDANSETRON HCL 4 MG/2 ML VIAL IV ONE (19:45)
[2023-07-03] MEDS ORDERED: DEXTROSE (50%) 50ML SYRG IV PRN (19:45)
[2023-07-03] MEDS ORDERED: HYDROmorphone HCL 2 MG/ML VL/or syr IV ONE (19:45)
[2023-07-03] MEDS ORDERED: ACETAMINOPHEN 325 MG TAB PO ONE (19:45)
[2023-07-03] MEDS ORDERED: ONDANSETRON ODT 4 MG TAB PO ONE (19:45)
[2023-07-03] MEDS ORDERED: SODIUM CHLORIDE 0.9% 1,000 ML IVB ONE (19:45)
[2023-07-03] MEDS ORDERED: SODIUM BICARBONATE 8.4 % INJ 50ML VIAL IV ONE (20:30)
[2023-07-03 20:31] LABS: Basophils # (auto) 0.1 10 ^3/uL (0-0.2); Basophils % (auto) 0.6 % (0.0-2.0); Eosinophils # (auto) 0 10 ^3/uL (0-0.8); Hematocrit 47.7 % (41.0-53.0); Hemoglobin 15.3 g/dL (13.5-17.5); Lymphocytes # (auto) 0.2 10 ^3/uL (0.4-5.4); Mean Corpuscular Hemoglobin 31.1 pg (28.0-32.0); Mean Corpuscular Hgb Conc. 32.2 g/dL (32.0-36.0); Mean Corpuscular Volume 96.7 fL (80.0-100.0); Monocytes # (auto) 1.8 10 ^3/uL (0-1.3); Monocytes % (auto) 9.8 % (0.0-12.0); Neutrophils # (auto) 16.2 10 ^3/uL (1.6-8.6); Neutrophils % (auto) 88.6 % (37.0-80.0); Red Blood Cells 4.93 10^6/uL (4.5-5.90); Red Cell Distribution Width 14.4 % (11.8-14.3); White Blood Cell 18.3 10^3/uL (4.4-10.8)
[2023-07-03 20:41] LABS: INR 0.97 (0.9-1.15); Partial Thromboplastin Time 31.9 SEC (24.5-34.5); Prothrombin Time 10.2 sec (9.3-11.8)
[2023-07-03] MEDS: ACCU-CHEK COMFORT CURVE STRIP VI SCH ×2 (21:08→23:41)
[2023-07-03 21:14] LABS: Chloride 85 mmol/L (98-107); Sodium 122 mmol/L (136-145)
[2023-07-03 21:17] LABS: Anion Gap 27.00001 (5-15); Calcium 8.5 mg/dL (8.7-10.4)
[2023-07-03 21:22] LABS: Alkaline Phosphatase 133 U/L (46-116); BUN/Creatinine Ratio 7.7 (10.0-20.0); Blood Alcohol 4.6 mg/dL (<10); Blood Urea Nitrogen 17 mg/dL (9-23)
[2023-07-03 21:23] LABS: Lipase 1046 U/L (12-53); Magnesium 2.6 mg/dL (1.6-2.6)
[2023-07-03 21:24] LABS: Alanine Aminotransferase 14 U/L (7-40); Albumin 4.9 g/dL (3.2-4.8); Aspartate Aminotransferase 20 U/L (13-40); Bilirubin, Total 0.7 mg/dL (0.2-1.0); Phosphorus 5.6 mg/dL (2.4-5.1); Total Protein 8.1 g/dL (5.7-8.2)
[2023-07-03 21:31] LABS: Carbon Dioxide < 10 mmol/L (20-30); Glucose 812 mg/dL (74-106); Potassium 5.6 mmol/L (3.5-5.1)
[2023-07-03 23:00] VITALS: PULSE 123; RESP 22; O2SAT 100
[2023-07-03] MEDS: SODIUM CHLORIDE 0.9% 1,000 ML IV SCH (23:45)
[2023-07-03] MEDS: INSULIN DRIP 100 UNIT/100ML 100 ML IV SCH (23:58)
[2023-07-04] MEDS: ACCU-CHEK COMFORT CURVE STRIP VI SCH ×16 (00:12→22:35)
[2023-07-04 00:40] LABS: Amphetamine Screen, Urine Neg (NEGATIVE); Barbiturate Scree,Urine Neg (NEGATIVE); Benzodiazephine Screen, Urine Neg (NEGATIVE); Cocaine Screen, Urine Neg (NEGATIVE); Opiate Scree,Urine Neg (NEGATIVE); Urine Bacteria FEW /hpf (None Seen); Urine Blood TRACE /uL (Negative); Urine Clarity Clear (Clear); Urine Color Colorless (Yellow); Urine Mucus FEW (None Seen); Urine Protein, UAD 1+ (Negative); Urine Urobilinogen Normal (Negative); Urine WBC 3 /hpf (0 - 3)
[2023-07-04 00:41] LABS: Cannabinoid Screen, Urine Neg (NEGATIVE); Phencyclidine Screen, Urine Neg (NEGATIVE)
[2023-07-04] MEDS ORDERED: PIPERACILLIN-TAZOB 3.375GM 100 ML IV ONE (01:15)
[2023-07-04 02:00] VITALS: PULSE 120; RESP 25; O2SAT 97
[2023-07-04 02:34] LABS: Anion Gap 27.00001 (5-15); Chloride 99 mmol/L (98-107); Sodium 136 mmol/L (136-145)
[2023-07-04 02:35] LABS: Calcium 8.3 mg/dL (8.7-10.4)
[2023-07-04 02:40] LABS: Blood Urea Nitrogen 19 mg/dL (9-23); Glucose 393 mg/dL (74-106)
[2023-07-04 02:42] LABS: Carbon Dioxide < 10 mmol/L (20-30)
[2023-07-04] MEDS ORDERED: D5W/SOD CHL 0.45% 1,000 ML IV ONE (04:30)
[2023-07-04] MEDS: SODIUM CHLORIDE 0.9% 1,000 ML IV SCH (04:41)
[2023-07-04] MEDS ORDERED: ONDANSETRON HCL 4 MG/2 ML VIAL IV PRN (05:45)
[2023-07-04] MEDS ORDERED: SODIUM BICARBONATE 50ML VIAL 100 ML in SOD CHL 0.45% 1,000 ML IV ONE (05:45)
[2023-07-04] MEDS ORDERED: MORPHINE SULFATE INJ 2 MG/ml SYRG IV PRN ×2 (05:45)
[2023-07-04] MEDS ORDERED: NITROGLYCERIN 0.4 MG SL TAB SL PRN (05:45)
[2023-07-04] MEDS ORDERED: SODIUM BICARBONATE 8.4 % INJ 50ML VIAL IV ONE ×2 (05:51→06:07)
[2023-07-04 08:00] VITALS: PULSE 115; RESP 18; O2SAT 100
[2023-07-04 08:24] LABS: Chloride 107 mmol/L (98-107); Potassium 3.2 mmol/L (3.5-5.1); Sodium 142 mmol/L (136-145)
[2023-07-04 08:25] LABS: Anion Gap 21 (5-15); Carbon Dioxide 14 mmol/L (20-30)
[2023-07-04 08:26] LABS: Calcium 8.8 mg/dL (8.5-10.1)
[2023-07-04 08:30] LABS: BUN/Creatinine Ratio 12.6 (10.0-20.0); Blood Urea Nitrogen 18 mg/dL (9-23)
[2023-07-04 08:36] LABS: Glucose 268 mg/dL (74-106)
[2023-07-04] MEDS: D5W/SOD CHL 0.45%/KCL 20MEQ 1,000 ML IV SCH ×2 (13:44→23:45)
[2023-07-04 14:35] LABS: Chloride 109 mmol/L (98-107); Potassium 3.1 mmol/L (3.5-5.1); Sodium 144 mmol/L (136-145)
[2023-07-04 14:36] LABS: Anion Gap 18 (5-15); Calcium 8.8 mg/dL (8.5-10.1); Carbon Dioxide 17 mmol/L (20-30)
[2023-07-04 14:41] LABS: BUN/Creatinine Ratio 10.1 (10.0-20.0); Blood Urea Nitrogen 12 mg/dL (9-23); Glucose 198 mg/dL (74-106)
[2023-07-04] MEDS: INSULIN DRIP 100 UNIT/100ML 100 ML IV SCH (19:35)
[2023-07-04 20:00] VITALS: PULSE 106; RESP 14; O2SAT 100
[2023-07-04 21:01] LABS: Chloride 109 mmol/L (98-107); Sodium 144 mmol/L (136-145)
[2023-07-04 21:02] LABS: Anion Gap 16 (5-15); Calcium 8.7 mg/dL (8.7-10.4); Carbon Dioxide 19 mmol/L (20-30)
[2023-07-04 21:07] LABS: Blood Urea Nitrogen 11 mg/dL (9-23); Glucose 195 mg/dL (74-106)
[2023-07-04] MEDS: POTASSIUM CHL 20MEQ/100ML 100 ML IV SCH (22:03)
[2023-07-05] VITALS (10 sets, daily range): BP systolic 117–140; BP diastolic 8–97; PULSE 66–78; RESP 12–17; TEMP 98.2; O2SAT 98–100
[2023-07-05] MEDS: ACCU-CHEK COMFORT CURVE STRIP VI SCH ×16 (00:17→22:44)
[2023-07-05] MEDS: POTASSIUM CHL 20MEQ/100ML 100 ML IV SCH (00:29)
[2023-07-05] MEDS: INSULIN DRIP 100 UNIT/100ML 100 ML IV SCH (04:57)
[2023-07-05 06:47] LABS: Alanine Aminotransferase 11 U/L (7-40); Albumin 3.4 g/dL (3.2-4.8); Alkaline Phosphatase 60 U/L (46-116); Anion Gap 17 (5-15); Aspartate Aminotransferase 18 U/L (13-40); Bilirubin, Total 0.5 mg/dL (0.2-1.0); Calcium 8.6 mg/dL (8.5-10.1); Carbon Dioxide 15 mmol/L (20-30); Chloride 112 mmol/L (98-107); Glucose 192 mg/dL (74-106); Potassium 3.1 mmol/L (3.5-5.1); Sodium 144 mmol/L (136-145); Total Protein 5.7 g/dL (5.7-8.2)
[2023-07-05 06:50] LABS: BUN/Creatinine Ratio 5.3 (10.0-20.0); Blood Urea Nitrogen < 5 mg/dL (9-23)
[2023-07-05 07:25] LABS: Basophils # (auto) 0 10 ^3/uL (0-0.2); Basophils % (auto) 0.3 % (0.0-2.0); Eosinophils # (auto) 0 10 ^3/uL (0-0.8); Eosinophils % (auto) 0.1 % (0.0-7.0); Hematocrit 35.6 % (41.0-53.0); Lymphocytes # (auto) 0.6 10 ^3/uL (0.4-5.4); Lymphocytes % (auto) 9.3 % (10.0-50.0); Mean Corpuscular Hemoglobin 30.5 pg (28.0-32.0); Mean Corpuscular Hgb Conc. 33.6 g/dL (32.0-36.0); Mean Corpuscular Volume 90.8 fL (80.0-100.0); Monocytes # (auto) 0.4 10 ^3/uL (0-1.3); Monocytes % (auto) 7.1 % (0.0-12.0); Neutrophils # (auto) 5.1 10 ^3/uL (1.6-8.6); Neutrophils % (auto) 83.2 % (37.0-80.0); Nucleated Red Blood Cells % 0.1 %; Red Blood Cells 3.92 10^6/uL (4.5-5.90); Red Cell Distribution Width 14.7 % (11.8-14.3); White Blood Cell 6.1 10^3/uL (4.4-10.8)
[2023-07-05] MEDS: D5W/SOD CHL 0.45%/KCL 20MEQ 1,000 ML IV SCH ×2 (09:49→22:46)
[2023-07-05 14:33] LABS: Alanine Aminotransferase 14 U/L (7-40); Albumin 3.8 g/dL (3.2-4.8); Alkaline Phosphatase 65 U/L (46-116); Anion Gap 15 (5-15); Aspartate Aminotransferase 19 U/L (13-40); Calcium 9.1 mg/dL (8.5-10.1); Carbon Dioxide 16 mmol/L (20-30); Chloride 112 mmol/L (98-107); Glucose 169 mg/dL (74-106); Sodium 143 mmol/L (136-145)
[2023-07-05 14:34] LABS: Bilirubin, Total 0.6 mg/dL (0.2-1.0); Total Protein 6.2 g/dL (5.7-8.2)
[2023-07-05 14:50] LABS: BUN/Creatinine Ratio 5.8 (10.0-20.0); Blood Urea Nitrogen < 5 mg/dL (9-23)
[2023-07-05] MEDS ORDERED: POTASSIUM EFFERVESENT TAB 25 MEQ PO ONE (16:45)
[2023-07-05 23:35] LABS: Chloride 107 mmol/L (98-107); Potassium 2.9 mmol/L (3.5-5.1); Sodium 139 mmol/L (136-145)
[2023-07-05 23:36] LABS: Anion Gap 11 (5-15); Calcium 8.9 mg/dL (8.5-10.1); Carbon Dioxide 21 mmol/L (20-30)
[2023-07-05 23:41] LABS: Glucose 176 mg/dL (74-106)
[2023-07-05 23:48] LABS: BUN/Creatinine Ratio 6.1 (10.0-20.0); Blood Urea Nitrogen < 5 mg/dL (9-23)
[2023-07-06] MEDS ORDERED: POTASSIUM CHL 20 Meq TABLET PO ONE (01:00)
[2023-07-06] MEDS: ACCU-CHEK COMFORT CURVE STRIP VI SCH ×3 (01:01→08:19)
[2023-07-06] MEDS: InsuLIN REG 1unit/0.01ml Soln (100units/ml) SC SCH ×2 (04:03→08:26)
[2023-07-06 05:32] LABS: Alanine Aminotransferase 15 U/L (7-40); Albumin 3.7 g/dL (3.2-4.8); Alkaline Phosphatase 71 U/L (46-116); Anion Gap 14 (5-15); Aspartate Aminotransferase 21 U/L (13-40); Bilirubin, Total 0.8 mg/dL (0.2-1.0); Calcium 8.9 mg/dL (8.7-10.4); Carbon Dioxide 16 mmol/L (20-30); Chloride 107 mmol/L (98-107); Glucose 194 mg/dL (74-106); Magnesium 1.8 mg/dL (1.6-2.6); Potassium 3.8 mmol/L (3.5-5.1); Sodium 137 mmol/L (136-145); Total Protein 6.2 g/dL (5.7-8.2)
[2023-07-06 05:41] LABS: Basophils # (auto) 0 10 ^3/uL (0-0.2); Basophils % (auto) 0.2 % (0.0-2.0); Eosinophils # (auto) 0 10 ^3/uL (0-0.8); Eosinophils % (auto) 0.3 % (0.0-7.0); Hematocrit 36.7 % (41.0-53.0); Hemoglobin 12.6 g/dL (13.5-17.5); Lymphocytes # (auto) 0.7 10 ^3/uL (0.4-5.4); Lymphocytes % (auto) 9.7 % (10.0-50.0); Mean Corpuscular Hemoglobin 31.3 pg (28.0-32.0); Mean Corpuscular Hgb Conc. 34.5 g/dL (32.0-36.0); Mean Corpuscular Volume 90.9 fL (80.0-100.0); Monocytes # (auto) 0.6 10 ^3/uL (0-1.3); Monocytes % (auto) 8.5 % (0.0-12.0); Neutrophils # (auto) 5.9 10 ^3/uL (1.6-8.6); Neutrophils % (auto) 81.3 % (37.0-80.0); Nucleated Red Blood Cells % 0.1 %; Red Blood Cells 4.04 10^6/uL (4.5-5.90); Red Cell Distribution Width 14.2 % (11.8-14.3); White Blood Cell 7.3 10^3/uL (4.4-10.8)
[2023-07-06 06:25] LABS: BUN/Creatinine Ratio 5.9 (10.0-20.0); Blood Urea Nitrogen < 5 mg/dL (9-23)
[2023-07-06 08:00] VITALS: PULSE 65; RESP 16; TEMP 98.2; O2SAT 99
[2023-07-06] MEDS ORDERED: INSULIN LANTUS (GLARGINE) 1 /0.01ml (100units/ml) SC ONE (09:45)
[2023-07-06] MEDS ORDERED: ACCU-CHEK COMFORT CURVE STRIP VI SCH (11:30)
[2023-07-06] MEDS ORDERED: InsuLIN REG 1unit/0.01ml Soln (100units/ml) SC SCH (11:30)
[2023-07-06 12:26] LABS: Chloride 103 mmol/L (98-107); Sodium 135 mmol/L (136-145)
[2023-07-06 12:27] LABS: Anion Gap 12 (5-15); Calcium 9.3 mg/dL (8.5-10.1); Carbon Dioxide 20 mmol/L (20-30)
[2023-07-06 12:32] LABS: BUN/Creatinine Ratio 7.8 (10.0-20.0); Blood Urea Nitrogen 7 mg/dL (9-23); Glucose 274 mg/dL (74-106)
[2023-07-06 14:00] VITALS: BP 127/80; PULSE 82; RESP 16; O2SAT 96
== END 2023-07-06 14:08 | disposition home or self-care (01) | DRG 282 ==
LOC: EDBD 19:10 → ER 19:10 → TELE 07-04 05:40
PROVIDERS: ADMIT Nurse Practitioner; ATTEND Internal Medicine Geriatric Medicine
DX: K85.90 Acute pancreatitis without necrosis or infection, unspecified (principal); N17.0 Acute kidney failure with tubular necrosis; E11.10 Type 2 diabetes mellitus with ketoacidosis without coma; Z79.4 Long term (current) use of insulin; E87.6 Hypokalemia; Z87.11 Personal history of peptic ulcer disease; Z91.199 Patient's noncompliance with other medical treatment and regimen due to unspecified reason; Z60.2 Problems related to living alone
CPT/HCPCS: 36415; 36600; 71045; 74176; 76705; 80048; 80053; 80307; 80320; 81001; 82010; 82805; 82962; 83605; 83690; 83735; 83930; 84100; 84484; 85025; 85610; 85730; 87040; 87086; 87088; 87186; 96360; G0378; J1815; J2405; J2543; J3480; Q0162

== ENCOUNTER 2025-01-03 01:14 | Inpatient (IN) | payer MEDICAID ==
[~2025-01-03] VITALS: Ht 170.2 cm; Wt 63.0 kg
[2025-01-03] VITALS (30 sets, daily range): BP systolic 115–154; BP diastolic 74–111; PULSE 103–143; RESP 10–22; TEMP 98.8; O2SAT 0–100
[2025-01-03 01:51] LABS: Anion Gap 37 (5-15)
[2025-01-03 01:52] LABS: Calcium 9.1 mg/dL (8.7-10.4)
[2025-01-03 01:53] LABS: Basophils # (auto) 0 10 ^3/uL (0-0.2); Basophils % (auto) 0.1 % (0.0-2.0); Eosinophils # (auto) 0 10 ^3/uL (0-0.8); Hematocrit 35.7 % (41.0-53.0); Hemoglobin 10.9 g/dL (13.5-17.5); Lymphocytes # (auto) 0.5 10 ^3/uL (0.4-5.4); Lymphocytes % (auto) 3.8 % (10.0-50.0); Mean Corpuscular Hgb Conc. 30.5 g/dL (32.0-36.0); Mean Corpuscular Volume 62.2 fL (80.0-100.0); Monocytes # (auto) 0.8 10 ^3/uL (0-1.3); Monocytes % (auto) 6.2 % (0.0-12.0); Neutrophils # (auto) 10.9 10 ^3/uL (1.6-8.6); Neutrophils % (auto) 89.9 % (37.0-80.0); Platelet Count (auto) 239 10^3/uL (140-450); Red Blood Cells 5.74 10^6/uL (4.5-5.90); Red Cell Distribution Width 21.4 % (11.8-14.3); White Blood Cell 12.1 10^3/uL (4.4-10.8)
[2025-01-03 01:54] LABS: Carbon Dioxide 16 mmol/L (20-31); Chloride 72 mmol/L (98-107); Potassium 2.8 mmol/L (3.5-5.1); Sodium 125 mmol/L (136-145)
[2025-01-03 01:57] LABS: BUN/Creatinine Ratio 17.3 (10.0-20.0); Lipase 27 U/L (12-53)
[2025-01-03 02:03] LABS: Base Excess -6.7 mmol/L (-2.0-3.0)
[2025-01-03 02:05] LABS: Blood Urea Nitrogen 34 mg/dL (9-23)
[2025-01-03 02:06] LABS: Glucose 573 mg/dL (74-106)
--- NOTE | 2025-01-03 02:19 | ED.PDOC ---
History of Present Illness HPI Comments 34 y/o M is BIBA for hyperglycemia. Per EMS report, patient called, initially, for c/o nausea, vomiting, diarrhea, and generalized weakness in addition to having a unwitnessed syncopal episode without fall or injury, this morning. Patient has a history of CAROL ANN, DM II, DKA, PUD, hypokalemia, and pancreatitis s econdary to alcohol abuse. He was found with an initial, multiple AccuCheck readings of HI on scene, amidst medication compliance endorsement. No reported recent lifestyle or medications changes. Patient has no further associated symptoms reported at this time, such chest pain or shortness of breath. Chief Complaint: GI Bleed Time Seen by MD: 01:10 Primary Care Provider: NONE Reviewed Notes: Nurses Notes, [place] [employer] Group Leader Notes, Medications, Allergies Allergies: Coded Allergies: NO KNOWN ALLERGIES (Unverified , 01/05/23) Home Meds Active Scripts Gabapentin (Gabapentin) 300 Mg Cap, 1 CAP PO TID, #90 CAP 5 Refills Prov:EDDIE TAMAYO MD 05/04/23 Pantoprazole Sodium Sesquihydr (Protonix) 40 Mg Tab, 40 MG PO DAILY, #30 TAB 5 Refills Prov:EDDIE TAMAYO MD 05/04/23 Sucralfate (CARAFATE SUSP) 1 Gm/10 Ml Ss, 1 GM PO QIDACHS, #240 ML 5 Refills Prov:EDDIE TAMAYO MD 05/04/23 Information Source: Emergency Med Personnel Mode of Arrival: EMS Severity: Moderate Timing: Hours Duration: Since onset Prehospital treatment: 12 Lead EKG, Accucheck, Computer Systems Auditor Past Medical History PAST MEDICAL HISTORY: DM (type II, insulin-dependent), PUD Past Medical History (Other): CAROL ANN DKA hypokalemia pancreatitis Surgical History: Denies all surgeries Family History Family History: Reviewed,noncontributory to illness Social History Smoker: Non-Smoker Alcohol: Heavy Drugs: Denies Drug Use Lives In: Home All Other Systems: Reviewed and Negative (Comprehensive systems review obtained and negative except for what is stated in the HPI.) Physical Exam General Appearance: No Apparent Distress, Normal HEENT: Normal ENT Inspection, Pharynx Normal, TMs Normal, Other (dry mucus membranes ) Neck: Full Range of Motion, Non-Tender, Normal, Normal Inspection Respiratory: Chest Non-Tender, Lungs Clear, No Accessory Muscle Use, No Respiratory Distress, Normal Breath Sounds Cardiovascular: No Edema, No JVD, No Murmur, No Gallop, Normal Peripheral Pulses, Regular Rate/Rhythm Breast Exam: Deferred Gastrointestinal: No Organomegaly, Non Tender, No Pulsatile Mass, Normal Bowel Sounds, Soft Genitalia: Deferred Pelvic: Deferred Rectal: Deferred Extremities: No calf tenderness, Normal capillary refill, Normal inspection, Normal range of motion, Non-tender, No pedal edema Musculoskeletal : Apperance: Normal Neurologic: Alert, division director II-XII nml as Tested, No Motor Deficits, Normal Affect, Normal Mood, No Sensory Deficits Cerebellar Function: Normal Reflexes: Normal Skin: Dry, Normal Color, Warm Lymphatic: No Adenopathy Was a procedure done? Was a procedure done?: No Differential Dx Considerations may include: DKA, hyperglycemia, encephalopathy, noncompliance, inappropriate medication dosage, among others X-Ray, Labs, Meds, VS Vital Signs Date Time Temp Pulse Resp B/P (MAP) Pulse Ox O2 Delivery O2 Flow Rate FiO2 01/03/25 01:25 98.5 126 16 138/98 (111) 98 98.5 Lab Test 01/03/25 01:59 01/03/25 01:27 Range/Units Blood Gas Specimen Type Arterial Blood Gas Sample Site Left radial Blood Gas Patient Temperature 37.0 Arterial Blood Date Drawn [id number] Arterial Blood pH 7.454 H 7.350-7.450 Arterial Blood Partial Pressure CO2 22.5 L 35.0-48.0 mmHg Arterial Blood Partial Pressure O2 93.6 83.0-108.0 mmHg Arterial Blood HCO3 15.4 L 21.0-28.0 mmol/L Arterial Blood Oxygen Saturation 96.8 94.0-98.0 % Arterial Blood Base Excess -6.7 L -2.0-3.0 mmol/L Arterial Blood Oxyhemoglobin 95.3 94.0-98.0 % Arterial Blood Carboxyhemoglobin 1.0 0.5-1.5 % Arterial Blood Methemoglobin 0.5 0.0-1.5 % Erik Test Yes Blood Gas Total Hemoglobin 11.80 L 13.5-17.5 g/dL Blood Gas Liter Flow 0.00 Blood Gas Modality Room air FiO2 % 21.0 White Blood Count 12.1 H 4.4-10.8 10^3/uL Red Blood Count 5.74 4.5-5.90 10^6/uL Hemoglobin 10.9 L 13.5-17.5 g/dL Hematocrit 35.7 L 41.0-53.0 % Mean Corpuscular Volume 62.2 L 80.0-100.0 fL Mean Corpuscular Hemoglobin 19.0 L 28.0-32.0 pg Mean Corpuscular Hemoglobin Concent 30.5 L 32.0-36.0 g/dL Red Cell Distribution Width 21.4 H 11.8-14.3 % Platelet Count 239 140-450 10^3/uL Mean Platelet Volume 8.2 6.9-10.8 fL Neutrophils (%) (Auto) 89.9 H 37.0-80.0 % Lymphocytes (%) (Auto) 3.8 L 10.0-50.0 % Monocytes (%) (Auto) 6.2 0.0-12.0 % Eosinophils (%) (Auto) 0.0 0.0-7.0 % Basophils (%) (Auto) 0.1 0.0-2.0 % Neutrophils # (Auto) 10.9 H 1.6-8.6 10 ^3/uL Lymphocytes # (Auto) 0.5 0.4-5.4 10 ^3/uL Monocytes # (Auto) 0.8 0-1.3 10 ^3/uL Eosinophils # (Auto) 0 0-0.8 10 ^3/uL Basophils # (Auto) 0 0-0.2 10 ^3/uL Nucleated Red Blood Cells 0.0 % Sodium Level 125 L 136-145 mmol/L Potassium Level 2.8 L 3.5-5.1 mmol/L Chloride Level 72 L 98-107 mmol/L Carbon Dioxide Level 16 L 20-31 mmol/L Anion Gap 37 H 5-15 Blood Urea Nitrogen 34 H 9-23 mg/dL Creatinine 1.96 H 0.700-1.30 mg/dL Glomerular Filtration Rate Calc 45 >90 mL/min BUN/Creatinine Ratio 17.3 10.0-20.0 Serum Glucose 573 *H 74-106 mg/dL Calcium Level 9.1 8.7-10.4 mg/dL Lipase 27 12-53 U/L Beta-Hydroxybutyric Acid > 4.500 H < 0.4 mmol/L Time of 1ST Reevaluation: 01:40 Reevaluation 1ST: Unchanged Patient Education/Counseling: Diagnosis, Treatment Family Education/Counseling: No Family Present Additional Information Previous visits reviewed: January 06, 2023, April 28, 2023, and July 04, 2023 encounters for DKA The following tests were ordered, and results were reviewed by me: CXR, UA, CBC, Beta hydroxybutyrate, BMP, lipase, venous blood gas, ABG w/CO-Ox Additional Information was gathered from interviewing the following independent historians: EMS I reviewed and agreed with the following test results read by other providers: CXR I discussed treatment and results with medical personnel and: patient Departure 1 Departure Time of Disposition: 02:31 (Patient presents to DKA. We will worry resuscitate patient fluids, potassium, insulin admit patient to ICU) Impression: Primary Impression: DKA (diabetic ketoacidosis) Qualified Codes: E11.10 - Type 2 diabetes mellitus with ketoacidosis without coma Additional Impressions: Hypokalemia Projectile vomiting with nausea Disposition: ADMITTED INPATIENT Admit to: ICU Condition: Critical Critical Care Note Critical Care Time?: Yes Critical care comment: DKA Authorized and Performed by: Bernardo Camara MD Total critical care time: Approximately 48 minutes Due to a high probability of clinically significant, life threatening deterioration, the patient required my highest level of preparedness to intervene emergently and I personally spent this critical care time directly and personally managing the patient. This critical care time included obtaining a history; examining the patient; pulse oximetry; ordering and review of studies; arranging urgent treatment with development of a management plan; evaluation of patient's response to treatment; frequent reassessment; and, discussions with other providers. This critical care time was performed to assess and manage the high probability of imminent, life-threatening deterioration that could result in multi-organ failure. It was exclusive of separately billable procedures and treating other patients and teaching time. Please see my other sections and the rest of the note for further information on patient assessment and treatment. Stability Stability form required: No Heart Score Heart Score: Heart Score Response (Comments) Value History N/A 0 EKG N/A 0 Age N/A 0 Risk Factors N/A 0 Troponin N/A 0 Total 0 I personally scribed for BERNARDO CAMARA MD ([email or web address]) on 01/03/25 at 02:19. Electronically submitted by iWlfred Horn ([email or web address]). BERNARDO CAMARA MD January 03, 2025 02:19
[2025-01-03] MEDS ORDERED: INSULIN DRIP 100 UNIT/100ML 100 ML IV SCH (02:30)
[2025-01-03] MEDS ORDERED: DEXTROSE (50%) 50ML SYRG IV PRN ×3 (02:30→23:30)
[2025-01-03] MEDS: SODIUM CHLORIDE 0.9% 3,000 ML IV ONE (02:36)
[2025-01-03] MEDS: FAMOTIDINE (10MG/ML) 2ML VL IV ONE (02:39)
[2025-01-03] MEDS: ONDANSETRON HCL 4 MG/2 ML VIAL IV ONE (02:45)
[2025-01-03] MEDS: POTASSIUM CHL 20MEQ/100ML 100 ML IV SCH ×3 (03:01→23:33)
[2025-01-03 03:06] LABS: Magnesium 2.3 mg/dL (1.6-2.6)
[2025-01-03 03:08] LABS: Phosphorus 6.7 mg/dL (2.4-5.1)
[2025-01-03] MEDS: ACCU-CHEK COMFORT CURVE STRIP VI SCH ×2 (03:25→09:07)
[2025-01-03] MEDS: SODIUM CHLORIDE 0.9% 1,000 ML IV SCH ×4 (03:30→07:59)
[2025-01-03] MEDS: INSULIN LANTUS (GLARGINE) 1 /0.01ml (100units/ml) SC ONE (03:46)
--- NOTE | 2025-01-03 04:15 | DVH ---
Examination: CXRP Clinical Indication: weakness Comparison: None. Technique: Frontal radiograph of the chest was obtained. Findings: Patient is in slight rotation. Lungs are clear and well expanded with no pulmonary infiltrate or pleural effusion. There is no pneumothorax. No evidence of cardiomegaly. No acute osseous abnormality is seen. Impression: No acute cardiopulmonary disease is seen. Electronically Signed 01/03/2025 04:13 Isaac Pop
[2025-01-03 04:34] LABS: Alanine Aminotransferase 12 U/L (7-40); Anion Gap 34 (5-15); BUN/Creatinine Ratio 14.1 (10.0-20.0); Blood Alcohol 4.1 mg/dL (<10); Calcium 9.2 mg/dL (8.7-10.4); Total Protein 8.1 g/dL (5.7-8.2)
[2025-01-03 04:35] LABS: Bilirubin, Direct 0.2 mg/dL (<0.3); Bilirubin, Total 0.9 mg/dL (0.2-1.0)
[2025-01-03 04:39] LABS: Alkaline Phosphatase 121 U/L (46-116); Aspartate Aminotransferase < 8 U/L (13-40); Blood Urea Nitrogen 26 mg/dL (9-23); Carbon Dioxide 13 mmol/L (20-31); Chloride 80 mmol/L (98-107); Potassium 2.9 mmol/L (3.5-5.1); Sodium 127 mmol/L (136-145)
[2025-01-03 04:41] LABS: Glucose 559 mg/dL (74-106)
--- NOTE | 2025-01-03 04:47 | DVHHP2 ---
History of Present Illness History of Present Illness Patient is 34-year-old male with past medical history of diabetes mellitus type 2, hypertension, previous history of DKA, previous history of pancreatitis due to alcoholism came with a complaint of generalized weakness and nausea and vomiting. As per patient he has been having frequent episodes of nausea and vomiting started yesterday morning almost every 20-30 minutes. Patient reported he had blood with the vomiting. Patient also reported having diarrhea 2 times yesterday and reported blood in the stool. On further discussion patient reported feeling very fatigued and tired and dizzy but no passing out or syncope. Patient also reported feeling chest compression, pressure-like, 8/10, no radiation no aggravating or relieving factor. Also some shortness of breath associated with chest compression. Patient reported being compliant with insulin Lantus and lispro as needed. Patient denied any fever, dysuria, acute joint redness or swelling, rhinorrhea/fever/cough. Initial lab workup revealed leukocytosis with WBC 12.1, mild anemia with a hemoglobin 10.9, MCV 62.2, RDW 21.4, pseudo hyponatremia with a sodium 125, hypokalemia with a potassium 2.8, anion gap 37, CAROL ANN likely with serum creatinine 1.96, GFR 45, BUN 17.3, blood sugar was 573, beta hydroxybutyrate> 4.5. ABG revealed metabolic acidosis with respiratory compensation with a pH 7.45, pCO2 22.5, pCO2 was 93.6, bicarbonate 15.4. Past Medical History Diabetes mellitus type 2, hypertension-not on any medication Past Surgical History None Past Social History Lives with parents, drinks alcohol couple of pain every day, denies substance abus or smoking Meds Lantus 20, lispro as required Review of Systems Review of Systems Allergy- NKDA Patient was seen today at the bedside. Cardiovascular- deny acute cough or palpitation Respiratory denies cough or wheezing Musculoskeletal-denies acute joint swelling or tenderness or redness Neurological- denies acute dysarthria, dysphagia, change in vision Psychiatry- denies depression or SI or HI Skin- denies acute rash or purpura Allergies: Coded Allergies: NO KNOWN ALLERGIES (Unverified , 01/05/23) Medications Current Medications Medications Dose Ordered Sig/Denise Route Start Time Stop Time Status Last Admin Dose Admin Potassium Chloride 100 ml @ 50 mls/hr Q2H IV 01/03/25 02:30 01/03/25 10:29 01/03/25 03:01 50 MLS/HR Sodium Chloride 1,000 ml @ 500 mls/hr Q2H IV 01/03/25 02:30 01/03/25 06:29 Sodium Chloride 1,000 ml @ 250 mls/hr Q4H IV 01/03/25 06:30 01/03/25 08:29 Potassium Chloride/Sodium Chloride 1,000 ml @ 150 mls/hr Q6H40M IV 01/03/25 02:30 Insulin Human (Reg)/Sodium Chloride 100 ml @ 0.5 mls/hr Q24H IV 01/03/25 02:30 Hold Dextrose 50 ml UD PRN IV 01/03/25 02:30 Diagnostic Test (Pha) 1 strip Q90MIN 01/03/25 03:00 01/03/25 03:25 1 STRIP Sodium Chloride 10 ml Q8HR IV 01/03/25 06:00 Sodium Chloride 1,000 ml @ 120 mls/hr Q8H20M IV 01/03/25 03:30 Ondansetron HCl 4 mg Q4HP PRN IV 01/03/25 03:30 Pantoprazole Sodium 40 mg BID IV 01/03/25 22:00 Thiamine HCl 100 mg DAILY IV 01/04/25 10:00 Folic Acid 1 mg/ Dextrose 50.2 ml @ 200.8 mls/ hr DAILY INJ 01/04/25 10:00 Exam Vital Signs Vital Signs Date Time Temp Pulse Resp B/P (MAP) Pulse Ox O2 Delivery O2 Flow Rate FiO2 01/03/25 03:59 126 01/03/25 03:15 98.0 15 135/93 (107) 100 98.0 01/03/25 03:15 Room Air* 0 21 Exam General examination- awake, alert, convert HEENT- PEERLA, no acute nasal discharge Cardiovascular- S1-S2 audible, rate and rhythm regular, no murmur Respiratory- CTAB, no wheeze or rhonchi Gastrointestinal-nontender, bowel sound+. Nondistended Musculoskeletal-no acute joint swelling or tenderness or redness Lower extremity- no leg edema Neurological- cranial nerves intact, no acute dysarthria or dysphagia Psychiatry- denies depression or SI or HI Skin- no acute rash or purpura Labs/Xrays Labs Test 01/03/25 03:50 01/03/25 03:24 01/03/25 01:59 01/03/25 01:27 Range/Units POC Glucose 517 *H 70-106 mg/dl Blood Gas Specimen Type Arterial Blood Gas Sample Site Left radial Blood Gas Patient Temperature 37.0 Arterial Blood Date Drawn [id number] Arterial Blood pH 7.454 H 7.350-7.450 Arterial Blood Partial Pressure CO2 22.5 L 35.0-48.0 mmHg Arterial Blood Partial Pressure O2 93.6 83.0-108.0 mmHg Arterial Blood HCO3 15.4 L 21.0-28.0 mmol/L Arterial Blood Oxygen Saturation 96.8 94.0-98.0 % Arterial Blood Base Excess -6.7 L -2.0-3.0 mmol/L Arterial Blood Oxyhemoglobin 95.3 94.0-98.0 % Arterial Blood Carboxyhemoglobin 1.0 0.5-1.5 % Arterial Blood Methemoglobin 0.5 0.0-1.5 % Erik Test Yes Blood Gas Total Hemoglobin 11.80 L 13.5-17.5 g/dL Blood Gas Liter Flow 0.00 Blood Gas Modality Room air FiO2 % 21.0 White Blood Count 12.1 H 4.4-10.8 10^3/uL Red Blood Count 5.74 4.5-5.90 10^6/uL Hemoglobin 10.9 L 13.5-17.5 g/dL Hematocrit 35.7 L 41.0-53.0 % Mean Corpuscular Volume 62.2 L 80.0-100.0 fL Mean Corpuscular Hemoglobin 19.0 L 28.0-32.0 pg Mean Corpuscular Hemoglobin Concent 30.5 L 32.0-36.0 g/dL Red Cell Distribution Width 21.4 H 11.8-14.3 % Platelet Count 239 140-450 10^3/uL Mean Platelet Volume 8.2 6.9-10.8 fL Neutrophils (%) (Auto) 89.9 H 37.0-80.0 % Lymphocytes (%) (Auto) 3.8 L 10.0-50.0 % Monocytes (%) (Auto) 6.2 0.0-12.0 % Eosinophils (%) (Auto) 0.0 0.0-7.0 % Basophils (%) (Auto) 0.1 0.0-2.0 % Neutrophils # (Auto) 10.9 H 1.6-8.6 10 ^3/uL Lymphocytes # (Auto) 0.5 0.4-5.4 10 ^3/uL Monocytes # (Auto) 0.8 0-1.3 10 ^3/uL Eosinophils # (Auto) 0 0-0.8 10 ^3/uL Basophils # (Auto) 0 0-0.2 10 ^3/uL Nucleated Red Blood Cells 0.0 % Phosphorus Level 6.7 H 2.4-5.1 mg/dL Magnesium Level 2.3 1.6-2.6 mg/dL Lipase 27 12-53 U/L Assessment/Plan Assessment/Plan Assessment and plan DKA Intractable nausea and vomiting likely due to DKA Acute gastroenteritis Hematemesis Chest pain with shortness of breaths, rule out ACS Metabolic acidosis with respiratory compensation CAROL ANN likely due to VMN Generalized weakness, fatigue, tiredness likely due to DKA Hypokalemia Pseudo hyponatremia History of HTN WBC 12.1, hemoglobin 10.9, MCV 62.2, RDW 21.4, Na-125 potassium 2.8, anion gap 37, serum creatinine 1.96, GFR 45, BUN 17.3, blood sugar was 573, beta hydroxybutyrate> 4.5. ABG revealed metabolic acidosis with respiratory compensation with a pH 7.45, pCO2 22.5, pCO2 was 93.6, bicarbonate 15.4. Plan Ordered IV normal saline Ordered IV potassium supplement Holding insulin for now until potassium 3.5 Ordered blood culture, urine culture, stool culture Ordered UDS, serum alcohol, TSH ordered EKG, troponin I Ordered repeat ABG in 2 hours Ordered stool occult blood test, stool culture, Ordered COVID-19, influenza test Ordered urinary sodium, protein creatinine ratio, urinary creatinine Chest x-ray Ordered gastroenterology consult for further evaluation of hematemesis On PUD prophylaxis Ordered echo 2D Continue ICU monitoring PCP -Dr. Dario Flynn Goals of care, Code status ; discussed with >15 minutes PUD prophylaxis: Pantoprazole DVT prophylaxis: SCD Plan discussed with Dr. Cooper , nursing staff, Total time spent on patient evaluation, chart review, assessment and plan, discussion discussion >35 minutes Plan discussed with: Patient, Other (RN) My Orders Orders - ALEXSANDRA CALI RESIDENT Procedure Category Date Status Time Sodium Chloride Lock PHA 01/03/25 In Process (Saline Lock Ns) 06:00 Stat Ekg For Chest SUSHMA 01/03/25 In Process Pain 03:26 Notify Md Of Changes SUSHMA 01/03/25 In Process From Base 03:26 Sourcing Associate For SUSHMA 01/03/25 In Process 24 Hours 03:26 Admit ADMIT 01/03/25 Transmitted 03:30 Code Status CODE 01/03/25 Transmitted 03:30 Sodium Chloride 0.9% PHA 01/03/25 In Process 03:30 Ondansetron Hcl PHA 01/03/25 In Process (Zofran) 03:30 Complete Blood Count LAB 01/04/25 Verified 04:00 Comprehensive LAB 01/04/25 Verified Metabolic Panel 04:00 Npo (Nothing By DIET 01/03/25 Transmitted Mouth) Diet Breakfast Stat Ekg For Chest SUSHMA 01/03/25 In Process Pain 03:30 Notify Md Of Changes SUSHMA 01/03/25 In Process From Base 03:30 Pantoprazole PHA 01/03/25 In Process (Protonix) 22:00 Blood Culture LUIS 01/03/25 In Process 03:32 Urine Bacterial LUIS 01/03/25 Logged Culture 03:32 Drug Screen LAB 01/03/25 Logged 03:32 Blood Alcohol LAB 01/03/25 In Process 03:32 Thyroid Stimulating LAB 01/03/25 In Process Hormone 03:32 Hepatic Panel LAB 01/03/25 In Process 03:32 Urine Sodium LAB 01/03/25 Logged 03:32 Urine LAB 01/03/25 Logged Protein/Creatinine Urine Creatinine LAB 01/03/25 Logged 03:32 Covid19 Antigen Jaimie LAB 01/03/25 Logged Rapid Influenza A&B LAB 01/03/25 Logged 03:36 Type And Screen BBK 01/03/25 In Process 03:37 Stool Occult Blood LAB 01/03/25 Logged 03:37 2 Large Bore Ivs SUSHMA 01/03/25 In Process (20mg Or Larg 03:37 Folic Acid PHA 01/04/25 In Process 10:00 Thiamine Inj PHA 01/04/25 In Process 10:00 Stool Wbc LAB 01/03/25 Logged 03:45 Stool Bacterial LUIS 01/03/25 Logged Culture 03:45 Troponin-I Hs LAB 01/03/25 In Process 03:46 Troponin-I Hs LAB 01/03/25 Logged 04:46 Troponin-I Hs LAB 01/03/25 Logged 06:46 Transfer Orders XFER 01/03/25 Transmitted 04:06 Basic Metabolic Panel LAB 01/03/25 In Process 03:50 Comprehensive LAB 01/03/25 Logged Metabolic Panel 06:00 Hemoglobin A1c LAB 01/03/25 Logged 04:14 Vitamin B1 (Thiamine) LAB 01/03/25 Logged 04:14 Folate (Folic Acid) LAB 01/03/25 Logged 04:14 Beta-Hydroxybutyrate LAB 01/03/25 In Process 06:00 Abg W/ Co-Ox RT 01/03/25 Logged 06:00 NS PHA 01/03/25 Transmitted 04:45 * Gi Dvh Child Protective Services Specialist CONS 01/03/25 Verified 04:36 Iron Panel LAB 01/03/25 Verified 04:36 Ferritin LAB 01/03/25 Verified 04:36 Date of Service: January 03, 2025 Billing Provider: LINWOOD COOPER MD Common Visit Codes: [id number] INP/OBS CARE (HIGH) Secondary Visit Codes: [id number] CARE PLAN 30 MINUTES ALEXSANDRA CALI RESIDENT January 03, 2025 04:47
[2025-01-03] MEDS ORDERED: SODIUM CHLOR 0.9% PF (SALINE LOCK) 10ML VIAL/SYR IV SCH (06:00)
[2025-01-03] MEDS: SODIUM CHLOR 0.9% PF (SALINE LOCK) 10ML VIAL/SYR IV SCH (06:02)
[2025-01-03 06:14] LABS: Base Excess -9.5 mmol/L (-2.0-3.0)
--- NOTE | 2025-01-03 06:15 | ECG ---
[facility] Test Date: 2025-01-03 Test Time: 03:59:33 Pat Name: GLADIS MILLER Department: ED Room: 0204T Gender: M Public Health Training Assistant: ED : 1990 Requested By: BERNARDO BROWNLEE Order Number: [id number] Reading MD: Topher Malloy Measurements Intervals [place] Rate: 126 P: 51 [place]: 126 QRS: 85 QRSD: 88 T: 17 QT: 324 QTc: 470 Interpretive Statements Sinus tachycardia Anteroseptal infarct, old Electronically Signed On 01-07-2025 21:59:48 PDT by Topher Malloy Please click the below link to view image of tracing.
[2025-01-03 06:33] LABS: Urine Bacteria None Seen /hpf (None Seen)
[2025-01-03 06:54] LABS: Urine Blood Negative /uL (Negative); Urine Clarity Clear (Clear); Urine Color Colorless (Yellow); Urine Hyaline Cast FEW /lpf (0 - 2); Urine Protein, UAD Negative (Negative); Urine Specific Gravity 1.014 (1.001-1.035); Urine Squamous Epithelial Cell None Seen /hpf (<5); Urine Urobilinogen Normal (Negative); Urine WBC < 1 /HPF (0-3)
[2025-01-03 07:00] LABS: Protein, Urine 15.4 mg/dL (1-14)
[2025-01-03 07:03] LABS: Creatinine, Urine 20.61 mg/dL (30.0-125.0); Urine Protein/Creatinine Ratio 0.75
[2025-01-03 07:08] LABS: Amphetamine Screen, Urine Neg (NEGATIVE); Barbiturate Scree,Urine Neg (NEGATIVE); Benzodiazephine Screen, Urine Neg (NEGATIVE); Cannabinoid Screen, Urine Neg (NEGATIVE); Cocaine Screen, Urine Neg (NEGATIVE); Opiate Scree,Urine Neg (NEGATIVE); Phencyclidine Screen, Urine Neg (NEGATIVE)
[2025-01-03] MEDS: SOD CHL 0.9%/ KCL 20MEQ 1,000 ML IV SCH (07:30)
[2025-01-03] MEDS: SODIUM CHLORIDE 0.9% 1,000 ML IV ONE (07:31)
[2025-01-03 07:48] LABS: Alanine Aminotransferase 11 U/L (7-40); Alkaline Phosphatase 116 U/L (46-116); Anion Gap 32 (5-15); BUN/Creatinine Ratio 18.1 (10.0-20.0); Bilirubin, Total 0.7 mg/dL (0.2-1.0); Calcium 9.1 mg/dL (8.7-10.4)
[2025-01-03 07:49] LABS: Aspartate Aminotransferase < 8 U/L (13-40); Blood Urea Nitrogen 33 mg/dL (9-23); Carbon Dioxide 13 mmol/L (20-31); Chloride 87 mmol/L (98-107); Potassium 3.2 mmol/L (3.5-5.1); Sodium 132 mmol/L (136-145)
[2025-01-03 07:51] LABS: Glucose 521 mg/dL (74-106)
[2025-01-03] MEDS: THIAMINE 100mg/ml INJ (200mg/2ml VIAL) IV ONE (07:58)
[2025-01-03] MEDS: PANTOPRAZOLE 40 MG/10 ML VIAL INJ IV ONE ×2 (07:59→22:31)
[2025-01-03] MEDS: FOLIC ACID 1 MG in D5W 5% 50 ML INJ ONE (08:12)
[2025-01-03 08:33] LABS: Calcium 8.8 mg/dL (8.7-10.4)
[2025-01-03 08:34] LABS: Anion Gap 28 (5-15); Carbon Dioxide 12 mmol/L (20-31); Chloride 94 mmol/L (98-107); Potassium 3.4 mmol/L (3.5-5.1); Sodium 134 mmol/L (136-145)
[2025-01-03 08:38] LABS: BUN/Creatinine Ratio 18.3 (10.0-20.0)
[2025-01-03] MEDS: INSULIN DRIP 100 UNIT/100ML 100 ML IV SCH (08:39)
[2025-01-03 08:40] LABS: Blood Urea Nitrogen 30 mg/dL (9-23)
[2025-01-03 08:46] LABS: Glucose 453 mg/dL (74-106)
[2025-01-03] MEDS: POTASSIUM CHL 20 Meq TABLET PO ONE (09:50)
[2025-01-03] MEDS ORDERED: ENOXAPARIN SOD 40 MG/0.4 ML SYRINGE SC SCH (10:00)
[2025-01-03] MEDS: INSULIN LANTUS (GLARGINE) 1 /0.01ml (100units/ml) SC SCH (10:28)
[2025-01-03 10:38] LABS: Rapid Influenza A Negative (Negative); Rapid Influenza B Negative (Negative)
[2025-01-03 10:39] LABS: COVID19 ANTIGEN SOFIA FIA NEGATIVE (NEGATIVE)
[2025-01-03] MEDS: ONDANSETRON HCL 4 MG/2 ML VIAL IV PRN (12:59)
--- NOTE | 2025-01-03 13:37 | DVHINCON2 ---
GI Consult Consult Note GI consult note Date of Consultation: 01/03/2025 Chief Complaint: Hematemesis Referring Physician: Dr. Arvizu H&P: 34-year-old male with past medical history of diabetes, hypertension, history of DKA, history of pancreatitis due to alcoholism presents to ER with complains of nausea and vomiting for one day. Patient admits to having dark colored emesis about 4 times since yesterday. Also has melena. No red blood in stool. Patient denies use of NSAIDs. Denies blood thinner use. Admits to alcohol use about two pt everyday. Last EGD [address] Shaw DATE OF OPERATION: 05/03/23 PROCEDURE: Upper Endoscopy with biopsy. PREOPERATIVE INDICATION: The patient is a 33 -year-old male undergoing endoscopy for atypical chest pain severe GERD and some odynophagia POSTOPERATIVE DIAGNOSES: 1. 2 cm sliding-type hiatal hernia with severe grade C erosive esophagitis with ulcers hyperemia erythema extending into the distal 8 to 10 cm of the esophagus from which biopsies were obtained 2. Mild antral gastritis 3. Moderate to severe duodenitis of the duodenal bulb with hyperemia erythema superficial erosions Pathology mild duodenitis, mild chronic inactive gastritis PROCEDURE PERFORMED BY: Vandana Shaw Past Medical History: Diabetes mellitus type 2, hypertension-not on any medication Past Surgical History: None Social History: NO smoking, positive heavy drinking ETOH Family History: Noncontributory Review of Systems: Constitutional: no fever, chill, weight loss HEENT: no eye pain, no hearing loss, no oral lesion, no scleral icterus Heart: no chest pain, no chest pressure Lung: no cough, no dyspnea with exertion Abdomen: see HPI Physical exam: General: NAD, AAOX3 Chest: lung tamez clear to auscultation Heart: RRR, no murmur Abdomen: non-distended, no tenderness to palpation, +BS Labs: Labs Test 01/03/25 11:53 01/03/25 09:30 01/03/25 08:05 01/03/25 06:15 Range/Units POC Glucose 201 H 70-106 mg/dl Influenza Type A Antigen Negative Negative Influenza Type B Antigen Negative Negative SARS-CoV-2 Antigen (Rapid) Negative NEGATIVE Sodium Level 134 L 136-145 mmol/L Potassium Level 3.4 L 3.5-5.1 mmol/L Chloride Level 94 L 98-107 mmol/L Carbon Dioxide Level 12 L 20-31 mmol/L Anion Gap 28 H 5-15 Blood Urea Nitrogen 30 H 9-23 mg/dL Creatinine 1.64 H 0.700-1.30 mg/dL Glomerular Filtration Rate Calc 56 >90 mL/min BUN/Creatinine Ratio 18.3 10.0-20.0 Serum Glucose 453 *H 74-106 mg/dL Calcium Level 8.8 8.7-10.4 mg/dL Troponin I High Sensitivity 4 </=54 ng/L Hemoglobin A1c 10.4 H <5.7 % A1C Iron Level 87 65-175 ug/dL Total Iron Binding Capacity 414 250-425 ug/dL Percent Iron Saturation 21.0 20-55 % Ferritin 28.7 22-322 ng/mL Total Bilirubin 0.7 0.2-1.0 mg/dL Aspartate Amino Transferase (AST) < 8 L 13-40 U/L Alanine Aminotransferase (ALT) 11 7-40 U/L Alkaline Phosphatase 116 46-116 U/L Total Protein 8.0 5.7-8.2 g/dL Albumin 5.0 H 3.2-4.8 g/dL Folic Acid 30.43 >5.38 ng/mL Test 01/03/25 06:08 01/03/25 06:00 01/03/25 03:50 01/03/25 01:59 Range/Units Blood Gas Specimen Type Arterial Blood Gas Sample Site Right radial Blood Gas Patient Temperature 37.0 Arterial Blood Date Drawn [id number] Arterial Blood pH 7.385 7.350-7.450 Arterial Blood Partial Pressure CO2 23.6 L 35.0-48.0 mmHg Arterial Blood Partial Pressure O2 96.6 83.0-108.0 mmHg Arterial Blood HCO3 13.8 L 21.0-28.0 mmol/L Arterial Blood Oxygen Saturation 96.6 94.0-98.0 % Arterial Blood Base Excess -9.5 L -2.0-3.0 mmol/L Arterial Blood Oxyhemoglobin 95.4 94.0-98.0 % Arterial Blood Carboxyhemoglobin 0.7 0.5-1.5 % Arterial Blood Methemoglobin 0.5 0.0-1.5 % Erik Test Yes Blood Gas Total Hemoglobin 11.50 L 13.5-17.5 g/dL Blood Gas Modality Room air FiO2 % 21.0 Urine Color Colorless Yellow Urine Clarity Clear Clear Urine pH 5.0 5.0-9.0 Urine Specific [place] 1.014 1.001-1.035 Urine Protein Negative Negative Urine Ketones 4+ H Negative Urine Blood Negative Negative /uL Urine Nitrite Negative Negative Urine Bilirubin Negative Negative Urine Urobilinogen Normal Negative mg/dL Urine Leukocyte Esterase Negative Negative /uL Urine RBC 1 0 - 3 /hpf Urine Microscopic WBC < 1 0-3 /HPF Urine Squamous Epithelial Cells None seen <5 /hpf Urine Bacteria None seen None Seen /hpf Urine Hyaline Casts Few 0 - 2 /lpf Urine Creatinine 20.61 L 30.0-125.0 mg/dL Urine Protein/Creatinine Ratio 0.75 Urine Sodium 51 40-220 mmol/L Urine Glucose 4+ H Normal mg/dL Urine Total Protein 15.4 H 1-14 mg/dL Urine Opiates Screen Neg NEGATIVE Urine Fentanyl Screen Neg NEGATIVE Urine Barbiturates Screen Neg NEGATIVE Urine Phencyclidine Screen Neg NEGATIVE Urine Amphetamines Screen Neg NEGATIVE Urine Benzodiazepines Screen Neg NEGATIVE Urine Cocaine Screen Neg NEGATIVE Urine Cannabinoids Screen Neg NEGATIVE Direct Bilirubin 0.2 <0.3 mg/dL Beta-Hydroxybutyric Acid > 4.500 H < 0.4 mmol/L Thyroid Stimulating Hormone (TSH) 1.06 0.55-4.78 uIU/mL Plasma/Serum Blood Alcohol 4.1 <10 mg/dL Blood Gas Liter Flow 0.00 Test 01/03/25 01:27 Range/Units White Blood Count 12.1 H 4.4-10.8 10^3/uL Red Blood Count 5.74 4.5-5.90 10^6/uL Hemoglobin 10.9 L 13.5-17.5 g/dL Hematocrit 35.7 L 41.0-53.0 % Mean Corpuscular Volume 62.2 L 80.0-100.0 fL Mean Corpuscular Hemoglobin 19.0 L 28.0-32.0 pg Mean Corpuscular Hemoglobin Concent 30.5 L 32.0-36.0 g/dL Red Cell Distribution Width 21.4 H 11.8-14.3 % Platelet Count 239 140-450 10^3/uL Mean Platelet Volume 8.2 6.9-10.8 fL Neutrophils (%) (Auto) 89.9 H 37.0-80.0 % Lymphocytes (%) (Auto) 3.8 L 10.0-50.0 % Monocytes (%) (Auto) 6.2 0.0-12.0 % Eosinophils (%) (Auto) 0.0 0.0-7.0 % Basophils (%) (Auto) 0.1 0.0-2.0 % Neutrophils # (Auto) 10.9 H 1.6-8.6 10 ^3/uL Lymphocytes # (Auto) 0.5 0.4-5.4 10 ^3/uL Monocytes # (Auto) 0.8 0-1.3 10 ^3/uL Eosinophils # (Auto) 0 0-0.8 10 ^3/uL Basophils # (Auto) 0 0-0.2 10 ^3/uL Nucleated Red Blood Cells 0.0 % Phosphorus Level 6.7 H 2.4-5.1 mg/dL Magnesium Level 2.3 1.6-2.6 mg/dL Lipase 27 12-53 U/L Imaging: Assessment: DKA Nausea and vomiting Hematemesis Plan: Discussed with Dr. Shaw Monitor labs transfuse if hemoglobin less than seven Protonix and Carafate Clear liquid diet We will continue to monitor patient Plan discussed with patient and RN Thank you for this consult Date of Service: January 03, 2025 Billing Provider: BRIONNA FLOWERS Common Visit Codes: CONSULT ONLY Consultation Codes: [id number] CONSULT <60MIN BRIONNA FLOWERS January 03, 2025 13:37
[2025-01-03 14:06] LABS: Chloride 101 mmol/L (98-107); Sodium 140 mmol/L (136-145)
[2025-01-03 14:07] LABS: Anion Gap 20 (5-15); Calcium 9.6 mg/dL (8.7-10.4)
[2025-01-03 14:08] LABS: Carbon Dioxide 19 mmol/L (20-31); Potassium 3.5 mmol/L (3.5-5.1)
[2025-01-03 14:12] LABS: BUN/Creatinine Ratio 23.7 (10.0-20.0)
[2025-01-03 14:13] LABS: Blood Urea Nitrogen 36 mg/dL (9-23); Glucose 170 mg/dL (74-106)
[2025-01-03] MEDS: D5W/SOD CHL 0.45% 1,000 ML IV SCH (14:46)
[2025-01-03] MEDS: METOCLOPRAMIDE HCL 5MG/ml INJ 2ml VIAL IV PRN (15:37)
[2025-01-03 17:11] LABS: Chloride 101 mmol/L (98-107); Sodium 140 mmol/L (136-145)
[2025-01-03 17:12] LABS: Anion Gap 18 (5-15); Calcium 9.8 mg/dL (8.7-10.4); Carbon Dioxide 21 mmol/L (20-31)
[2025-01-03 17:17] LABS: BUN/Creatinine Ratio 24.5 (10.0-20.0)
--- NOTE | 2025-01-03 18:07 | DVHPNRES ---
Progress Note Date Seen: January 03, 2025 Resident Creating Document: ELIO SUMNER RESIDENT Medical Necessity Reason Pt with a Central, PICC or Fol: No Subjective Review of Systems Patient seen and examined at bedside On insulin drip Complaining of generalized fatigue Complaining of nausea and vomiting. No any other new complaint Objective vital signs Vital Sign Date Time Temp Pulse Resp B/P (MAP) Pulse Ox O2 Delivery O2 Flow Rate FiO2 01/03/25 18:02 128 01/03/25 18:02 18 0 Room Air* 0 21 01/03/25 17:15 134/91 (105) 01/03/25 15:09 98.8 98.8 Total Intake and Output 01/02/25 01/02/25 01/03/25 15:00 23:00 07:00 Intake Total 2100 ml Balance 2100 ml medications Current Medications Medications Dose Ordered Sig/Denise Route Start Time Stop Time Status Last Admin Dose Admin Sodium Chloride 10 ml Q8HR IV 01/03/25 06:00 01/03/25 14:00 10 ML Ondansetron HCl 4 mg Q4HP PRN IV 01/03/25 03:30 Hold 01/03/25 12:59 4 MG Thiamine HCl 100 mg DAILY IV 01/04/25 10:00 Folic Acid 1 mg/ Dextrose 50.2 ml @ 200.8 mls/ hr DAILY INJ 01/04/25 10:00 Insulin Glargine 15 units DAILY@1000 SC 01/03/25 10:00 01/03/25 10:28 15 UNITS Insulin Human (Reg)/Sodium Chloride 100 ml @ 0.5 mls/hr Q24H IV 01/03/25 08:15 01/03/25 08:39 6 MLS/HR Diagnostic Test (Pha) 1 strip Q90MIN 01/03/25 09:00 01/03/25 16:30 1 STRIP Dextrose 50 ml PRN PRN IV 01/03/25 08:15 Sucralfate 1 gm TID@0600,1130,2200 PO 01/03/25 22:00 Dextrose/Sodium Chloride 1,000 ml @ 150 mls/hr Q6H40M IV 01/03/25 14:30 01/03/25 14:46 150 MLS/HR Metoclopramide HCl 5 mg Q6HPRN PRN IV 01/03/25 15:15 01/03/25 15:37 5 MG Examination General Appearance: Alert, Oriented X3, Cooperative, No acute distress HEENT: Atraumatic, PERRLA, EOMI, Mucous membrane moist/pink Respiratory: Clear to auscultation, Normal air movement Cardiovascular: Regular rate, Normal S1, Normal S2, No murmurs, no chest wall tenderness Abdominal: Normal bowel sounds, Soft, No tenderness, No hepatospenomegaly, No masses Extremities: No clubbing, No cyanosis, No edema, Normal pulses, No tenderness/swelling Skin: No rashes, No breakdown, No significant lesion Neuro: Normal gait, Normal speech, Strength at 5/5 X4 ext, Normal tone, Sensation intact, Cranial nerves 3-12 NL, Reflexes 2+ Psych/Mental Status: Mental status NL, Mood NL laboratory and microbiology Laboratory Tests 01/03/25 01:27 Test 01/03/25 16:37 Range/Units Serum Glucose Pending Problem List/Assessment/Plan Problem List/Assessment/Plan Diabetic ketoacidosis Diabetes mellitus type 1 Intractable nausea and vomiting due to diabetic ketoacidosis Medication nonadherence Metabolic acidosis CAROL ANN due to VMN Pseudo hyponatremia Hypokalemia Hematemesis Plan/recommendation -patient is on insulin drip, continue monitor BNP. Given blood glucose less than 200, IV fluid transition to D5W half NS. -monitor BMP q.6, repeat CBC given suspicion for hematemesis. -continue monitor kidney function, BUN creatinine continuously downtrending. -monitor urine output, strict I&O -GI consultation for hematemesis -clear liquid diet -IV folic acid and thiamine. -symptomatic treatment: Metoclopramide 5 mg IV q.6 p.r.n. for nausea vomiting -ABGs: Metabolic acidosis. PH 7.385, CO2 23.6, HC03 13.8. -IV Protonix -hold DVT prophylaxis given possible hematemesis. Goals of care discussion colchicine 24 minutes, full code Plan discussed with Dr Taylor Plan discussed with: Patient, Other (RN) My Orders My Orders Orders - LEIO SUMNER RESIDENT Procedure Category Date Status Time Insulin Drip 100 PHA 01/03/25 In Process Unit/100ml (Myxredlin 08:15 Glucose Blood PHA 01/03/25 In Process (Accu-Chek Comfort 09:00 D/C All Diabetic SUSHMA 01/03/25 In Process Medications 08:10 Insulin Drip Protocol SUSHMA 01/03/25 In Process 08:10 Dextrose 50% Syringe PHA 01/03/25 In Process 08:15 Pantoprazole PHA 01/03/25 In Process (Protonix) 22:00 D5w/Sod Chl 0.45% PHA 01/03/25 In Process (D5w 1/2ns) 14:30 Basic Metabolic Panel LAB 01/03/25 In Process 16:29 Metoclopramide PHA 01/03/25 In Process Injection (Reglan 15:15 Date of Service: January 03, 2025 Billing Provider: EDDIE TAYLOR MD Common Visit Codes: NOT BILLABLE ELIO SUMNER RESIDENT January 03, 2025 18:06 EDDIE TAYLOR MD January 04, 2025 07:21
[2025-01-03 18:08] LABS: Blood Urea Nitrogen 35 mg/dL (9-23); Glucose 235 mg/dL (74-106); Potassium 3.4 mmol/L (3.5-5.1)
[2025-01-03] MEDS ORDERED: PANTOPRAZOLE 40 MG/10 ML VIAL INJ IV SCH (22:00)
[2025-01-03] MEDS: SUCRALFATE 1 GM/10 ML ORAL SUSP PO SCH (22:00)
[2025-01-03 22:54] LABS: Chloride 103 mmol/L (98-107); Sodium 138 mmol/L (136-145)
[2025-01-03 22:55] LABS: Calcium 9.5 mg/dL (8.7-10.4)
[2025-01-03 23:00] LABS: BUN/Creatinine Ratio 20.5 (10.0-20.0)
[2025-01-03 23:04] LABS: Blood Urea Nitrogen 25 mg/dL (9-23); Glucose 178 mg/dL (74-106); Potassium 3.3 mmol/L (3.5-5.1)
[2025-01-03 23:14] LABS: Anion Gap 12 (5-15); Carbon Dioxide 23 mmol/L (20-31)
[2025-01-03] MEDS ORDERED: POTASSIUM CHL 20MEQ/100ML 100 ML IV SCH (23:15)
[2025-01-04] VITALS (10 sets, daily range): BP systolic 120–147; BP diastolic 84–101; PULSE 77–119; RESP 8–20; TEMP 98; O2SAT 97–100
[2025-01-04] MEDS: ACCU-CHEK COMFORT CURVE STRIP VI SCH (00:18)
[2025-01-04] MEDS: InsuLIN REG 1unit/0.01ml Soln (100units/ml) SC SCH (00:22)
[2025-01-04 01:28] LABS: Chloride 100 mmol/L (98-107); Potassium 3.8 mmol/L (3.5-5.1)
[2025-01-04 01:29] LABS: Anion Gap 12 (5-15); Carbon Dioxide 24 mmol/L (20-31)
[2025-01-04 01:30] LABS: Calcium 8.8 mg/dL (8.7-10.4)
[2025-01-04 01:33] LABS: Sodium 136 mmol/L (136-145)
[2025-01-04 01:35] LABS: BUN/Creatinine Ratio 20.3 (10.0-20.0)
[2025-01-04 01:41] LABS: Blood Urea Nitrogen 24 mg/dL (9-23); Glucose 200 mg/dL (74-106)
[2025-01-04] MEDS: SODIUM CHLORIDE 0.9% 1,000 ML IV SCH (02:15)
[2025-01-04 02:28] LABS: Chloride 101 mmol/L (98-107); Sodium 136 mmol/L (136-145)
[2025-01-04 02:29] LABS: Anion Gap 10 (5-15); Carbon Dioxide 25 mmol/L (20-31)
[2025-01-04 02:30] LABS: Calcium 8.9 mg/dL (8.7-10.4)
[2025-01-04 02:34] LABS: BUN/Creatinine Ratio 19.8 (10.0-20.0); Blood Urea Nitrogen 23 mg/dL (9-23)
[2025-01-04 02:40] LABS: Glucose 221 mg/dL (74-106)
[2025-01-04 06:28] LABS: Anion Gap 10 (5-15); Calcium 9.1 mg/dL (8.7-10.4); Carbon Dioxide 24 mmol/L (20-31); Chloride 103 mmol/L (98-107); Potassium 3.8 mmol/L (3.5-5.1); Sodium 137 mmol/L (136-145)
[2025-01-04 06:34] LABS: BUN/Creatinine Ratio 19.8 (10.0-20.0); Blood Urea Nitrogen 21 mg/dL (9-23)
[2025-01-04 06:35] LABS: Glucose 146 mg/dL (74-106)
[2025-01-04 06:39] LABS: Basophils # (auto) 0 10 ^3/uL (0-0.2); Basophils % (auto) 0.2 % (0.0-2.0); Eosinophils # (auto) 0 10 ^3/uL (0-0.8); Hemoglobin 9.1 g/dL (13.5-17.5); Lymphocytes # (auto) 0.5 10 ^3/uL (0.4-5.4); Nucleated Red Blood Cells % 0.1 %; Red Blood Cells 4.65 10^6/uL (4.5-5.90)
[2025-01-04 06:41] LABS: Hematocrit 28.5 % (41.0-53.0); Lymphocytes % (auto) 8.4 % (10.0-50.0); Mean Corpuscular Hemoglobin 19.5 pg (28.0-32.0); Mean Corpuscular Hgb Conc. 31.8 g/dL (32.0-36.0); Mean Corpuscular Volume 61.2 fL (80.0-100.0); Monocytes # (auto) 0.5 10 ^3/uL (0-1.3); Monocytes % (auto) 7.7 % (0.0-12.0); Neutrophils # (auto) 5.4 10 ^3/uL (1.6-8.6); Neutrophils % (auto) 83.7 % (37.0-80.0); Platelet Count (auto) 169 10^3/uL (140-450); White Blood Cell 6.4 10^3/uL (4.4-10.8)
[2025-01-04 07:00] LABS: Red Cell Distribution Width 21.2 % (11.8-14.3)
[2025-01-04] MEDS ORDERED: INSULIN LANTUS (GLARGINE) 1 /0.01ml (100units/ml) SC SCH (10:00)
[2025-01-04] MEDS: THIAMINE 100mg/ml INJ (200mg/2ml VIAL) IV SCH (10:19)
[2025-01-04] MEDS: FOLIC ACID 1 MG in D5W 5% 50 ML INJ SCH (10:35)
--- NOTE | 2025-01-04 14:03 | DVHPN2 ---
Subjective Patient admits to feeling better No abdominal pain. No nausea or vomiting. Denies hematemesis. No melena Changes from previous H/P or p: No Changes Objective Vitals Vital Signs Date Time Temp Pulse Resp B/P (MAP) Pulse Ox O2 Delivery O2 Flow Rate FiO2 01/04/25 09:04 98.0 119 16 140/96 (111) 100 98.0 01/04/25 07:49 Room Air* 0 21 Intake/Output Intake and Output 01/04/25 06:59 Intake Total 3564.5 ml Output Total 1575 ml Balance 1989.5 ml Intake Oral 930 ml IV Total 2634.5 ml Output Urine Total 1575 ml Stool Total 0 ml General Appearance: Alert, Oriented X3, Cooperative, No acute distress, mild distress, moderate distress, severe distress, Other Lungs: Clear to auscultation, Normal air movement, Other Cardiovascular: Regular rate, Normal S1, Normal S2, No murmurs, Gallops, Rubs, Other Abdomen: Normal bowel sounds, Soft, No tenderness, No hepatospenomegaly, No masses, Other Medications Current Medications Medications Dose Ordered Sig/Denise Route Start Time Stop Time Status Last Admin Dose Admin Sodium Chloride 10 ml Q8HR IV 01/03/25 06:00 01/04/25 05:20 10 ML Ondansetron HCl 4 mg Q4HP PRN IV 01/03/25 03:30 Hold 01/03/25 12:59 4 MG Thiamine HCl 100 mg DAILY IV 01/04/25 10:00 01/04/25 10:19 100 MG Folic Acid 1 mg/ Dextrose 50.2 ml @ 200.8 mls/ hr DAILY INJ 01/04/25 10:00 01/04/25 10:35 200.8 MLS/HR Insulin Glargine 15 units DAILY@1000 SC 01/03/25 10:00 01/04/25 10:20 15 UNITS Sucralfate 1 gm TID@0600,1130,2200 PO 01/03/25 22:00 Metoclopramide HCl 5 mg Q6HPRN PRN IV 01/03/25 15:15 01/04/25 07:56 5 MG Diagnostic Test (Pha) 1 strip IQ4HR 01/04/25 00:00 01/04/25 12:26 1 STRIP Insulin Human Regular IQ4HR SC 01/04/25 00:00 01/04/25 12:28 9 UNITS Dextrose 50 ml UD PRN IV 01/03/25 23:30 Sodium Chloride 1,000 ml @ 100 mls/hr Q10H IV 01/04/25 02:15 01/04/25 07:54 100 MLS/HR Laboratory Results Laboratory Tests 01/04/25 05:17 Chemistry Test 01/03/25 16:37 01/03/25 22:09 01/04/25 00:48 01/04/25 02:02 Calcium Level 9.8 mg/dL (8.7-10.4) 9.5 mg/dL (8.7-10.4) 8.8 mg/dL (8.7-10.4) 8.9 mg/dL (8.7-10.4) Test 01/04/25 05:17 Calcium Level 9.1 mg/dL (8.7-10.4) Urinalysis Test 01/03/25 06:00 Urine Color Colorless (Yellow) Urine Clarity Clear (Clear) Urine pH 5.0 (5.0-9.0) Urine Specific [place] 1.014 (1.001-1.035) Urine Protein Negative (Negative) Urine Ketones 4+ (Negative) H Urine Blood Negative /uL (Negative) Urine Nitrite Negative (Negative) Urine Bilirubin Negative (Negative) Urine Urobilinogen Normal mg/dL (Negative) Urine Leukocyte Esterase Negative /uL (Negative) Urine RBC 1 /hpf (0 - 3) Urine Microscopic WBC < 1 /HPF (0-3) Urine Squamous Epithelial Cells None seen /hpf (<5) Urine Bacteria None seen /hpf (None Seen) Urine Hyaline Casts Few /lpf (0 - 2) Urine Creatinine 20.61 mg/dL (30.0-125.0) L Urine Protein/Creatinine Ratio 0.75 Urine Sodium 51 mmol/L (40-220) Urine Glucose 4+ mg/dL (Normal) H Urine Total Protein 15.4 mg/dL (1-14) H Microbiology Microbiology Date/Time Source Procedure Growth Status 01/03/25 06:00 Voided Urine Urine Culture - Preliminary Resulted 01/03/25 03:52 Blood Blood Culture - Preliminary NO GROWTH AFTER 24 HOURS OF INCUBATION. Resulted Labs and/or images reviewed: Labs reviewed by me, Image(s) reviewed by me Assessment/Plan Assessment/Plan DKA Nausea and vomiting Hematemesis Plan Discussed with Dr. Shaw Discussed plan for EGD for today, including discussion of risks benefits and alternatives and sedation discussed. Patient at this time refused to have EGD done. Admits to feeling better. And would like to have his diet advanced Continue Protonix Full liquid diet advance as tolerated Outpatient GI follow-up in 4-6 weeks Repeat GI services if any bleeding recurs Plan discussed with: Patient, Other (RN) My Orders Orders - BRIONNA FLOWERS Procedure Category Date Status Time Full Liq Diet DIET 01/04/25 Verified Dinner Date of Service: January 04, 2025 Billing Provider: BRIONNA FLOWERS Common Visit Codes: [id number] INP/OBS CARE(HIGH) BRIONNA FLOWERS January 04, 2025 14:03
--- NOTE | 2025-01-04 18:18 | DVHPNRES ---
Progress Note Date Seen: January 04, 2025 Resident Creating Document: ELIO SUMNER RESIDENT Medical Necessity Reason Pt with a Central, PICC or Fol: No Subjective Review of Systems patient seen and examined at bed side generalized weakness no other complains advance diet as tolerated no upper GI bleed currently Objective vital signs Vital Sign Date Time Temp Pulse Resp B/P (MAP) Pulse Ox O2 Delivery O2 Flow Rate FiO2 01/04/25 13:30 98.0 91 15 145/92 (109) 100 98.0 01/04/25 07:49 Room Air* 0 21 Total Intake and Output 01/03/25 01/03/25 01/04/25 15:00 23:00 07:00 Intake Total 631.5 ml 1483.0 ml 1450 ml Output Total 800 ml 0 ml 775 ml Balance -168.5 ml 1483.0 ml 675 ml medications Current Medications Medications Dose Ordered Sig/Denise Route Start Time Stop Time Status Last Admin Dose Admin Sodium Chloride 10 ml Q8HR IV 01/03/25 06:00 01/04/25 14:09 10 ML Ondansetron HCl 4 mg Q4HP PRN IV 01/03/25 03:30 Hold 01/03/25 12:59 4 MG Thiamine HCl 100 mg DAILY IV 01/04/25 10:00 01/04/25 10:19 100 MG Folic Acid 1 mg/ Dextrose 50.2 ml @ 200.8 mls/ hr DAILY INJ 01/04/25 10:00 01/04/25 10:35 200.8 MLS/HR Insulin Glargine 15 units DAILY@1000 SC 01/03/25 10:00 01/04/25 10:20 15 UNITS Metoclopramide HCl 5 mg Q6HPRN PRN IV 01/03/25 15:15 01/04/25 07:56 5 MG Diagnostic Test (Pha) 1 strip IQ4HR 01/04/25 00:00 01/04/25 12:26 1 STRIP Insulin Human Regular IQ4HR SC 01/04/25 00:00 01/04/25 12:28 9 UNITS Dextrose 50 ml UD PRN IV 01/03/25 23:30 Sodium Chloride 1,000 ml @ 100 mls/hr Q10H IV 01/04/25 02:15 01/04/25 07:54 100 MLS/HR Examination General Appearance: Cooperative. Well developed. Well nourished. NAD Head Exam: Normal inspection Neck Exam: Normal inspection. Non-tender. Normal alignment Pulmonary/Respiratory: Chest non-tender. Clear bilateral breath sounds Cardiovascular/Chest: Regular rate and rhythm. No murmurs. No JVD. Peripheral Pulses: 2+ Radial (R). 2+ Radial (L). 2+ Pedal (R). 2+ Pedal (L) Abdominal Exam: Normal bowel sounds. Soft. Nontender. No hepatospenomegaly. No masses Ankle Exam: Negative ankle edema Lower extremities: Negative lower extremity edema Neuro/Mental Status: A&O x4. Coherent Thoughts/Psych: Normal thought pattern. Appropriate mood and affect. Good judgement and insight Appearance: In no acute distress Skin Exam: Normal inspection. Normal color. Warm. Dry laboratory and microbiology Laboratory Tests 01/04/25 05:17 Test 01/04/25 05:17 Range/Units Serum Glucose 146 H 74-106 mg/dL Microbiology Date/Time Source Procedure Growth Status 01/03/25 06:00 Voided Urine Urine Culture - Preliminary Resulted 01/03/25 03:52 Blood Blood Culture - Preliminary NO GROWTH AFTER 24 HOURS OF INCUBATION. Resulted Problem List/Assessment/Plan Problem List/Assessment/Plan Diabetic ketoacidosis Diabetes mellitus type 1 Intractable nausea and vomiting due to diabetic ketoacidosis Medication nonadherence Metabolic acidosis CAROL ANN due to VMN Pseudo hyponatremia Hypokalemia Hematemesis Plan/recommendation -Off insulin drip. lantus 22 unit QAM. insulin sliding scale. -continue monitor kidney function, BUN creatinine continuously downtrending. -monitor urine output, strict I&O -GI consultation for hematemesis -clear liquid diet: advance as tolerated -IV folic acid and thiamine. -symptomatic treatment: Metoclopramide 5 mg IV q.6 p.r.n. for nausea vomiting -ABGs: Metabolic acidosis. PH 7.385, CO2 23.6, HC03 13.8. -IV Protonix -hold DVT prophylaxis given possible hematemesis. Goals of care discussion colchicine 24 minutes, full code Plan discussed with Dr Taylor Plan discussed with: Patient, Other (RN) My Orders My Orders Orders - ELIO SUMNER Procedure Category Date Status Time Pt Request For Service PT 01/04/25 Logged 10:15 Insulin Lantus PHA 01/05/25 Transmitted (Glargine) (Lantus) 10:00 Date of Service: January 04, 2025 Billing Provider: EDDIE TAYLOR MD Common Visit Codes: [id number] INP/OBS CARE(HIGH) ELIO SUMNER RESIDENT January 04, 2025 18:18 EDDIE TAYLOR MD January 04, 2025 21:46
[2025-01-04] MEDS: HYDROcodone-ACET 5/325MG TAB PO PRN (21:21)
[2025-01-05 02:05] VITALS: BP 144/96; PULSE 84; RESP 18; TEMP 98.1; O2SAT 100
[2025-01-05 05:00] VITALS: BP 137/86; PULSE 72; RESP 20; TEMP 97.6; O2SAT 100
[2025-01-05 06:53] LABS: Anion Gap 7 (5-15); Carbon Dioxide 25 mmol/L (20-31); Sodium 141 mmol/L (136-145)
[2025-01-05 06:54] LABS: Calcium 9.2 mg/dL (8.7-10.4)
[2025-01-05 06:59] LABS: BUN/Creatinine Ratio 17.1 (10.0-20.0); Blood Urea Nitrogen 13 mg/dL (9-23); Glucose 86 mg/dL (74-106)
[2025-01-05 07:01] LABS: Chloride 109 mmol/L (98-107); Potassium 2.9 mmol/L (3.5-5.1)
[2025-01-05 08:00] VITALS: PULSE 91
[2025-01-05 09:00] VITALS: BP 128/93; PULSE 70; RESP 18; TEMP 98.4; O2SAT 100
[2025-01-05] MEDS: POTASSIUM CHL 20MEQ/100ML 100 ML IV SCH (09:00)
[2025-01-05] MEDS: INSULIN LANTUS (GLARGINE) 1 /0.01ml (100units/ml) SC SCH (09:47)
[2025-01-05] MEDS ORDERED: INSLANTI SC (12:15)
--- NOTE | 2025-01-05 12:34 | DVHPN2 ---
Progress Note - Dictate Date Seen: January 05, 2025 Medical Necessity Reason Pt with a Central, PICC or Fol: No Subjective Patient admits to feeling better;No new complaints No abdominal pain. No nausea or vomiting. Denies hematemesis. No melena vital signs Vital Sign Date Time Temp Pulse Resp B/P (MAP) Pulse Ox O2 Delivery O2 Flow Rate FiO2 01/05/25 09:00 98.4 70 18 128/93 (105) 100 98.4 01/05/25 02:05 Room Air* 0 21 Total Intake and Output 01/04/25 01/04/25 01/05/25 15:00 23:00 07:00 Intake Total 50.2 ml Balance 50.2 ml medications Current Medications Medications Dose Ordered Sig/Denise Route Start Time Stop Time Status Last Admin Dose Admin Sodium Chloride 10 ml Q8HR IV 01/03/25 06:00 01/04/25 22:00 10 ML Ondansetron HCl 4 mg Q4HP PRN IV 01/03/25 03:30 Hold 01/03/25 12:59 4 MG Thiamine HCl 100 mg DAILY IV 01/04/25 10:00 01/05/25 09:40 100 MG Folic Acid 1 mg/ Dextrose 50.2 ml @ 200.8 mls/ hr DAILY INJ 01/04/25 10:00 01/05/25 10:28 200.8 MLS/HR Metoclopramide HCl 5 mg Q6HPRN PRN IV 01/03/25 15:15 01/04/25 07:56 5 MG Diagnostic Test (Pha) 1 strip IQ4HR 01/04/25 00:00 01/05/25 12:07 1 STRIP Insulin Human Regular IQ4HR SC 01/04/25 00:00 01/05/25 12:07 9 UNITS Dextrose 50 ml UD PRN IV 01/03/25 23:30 Sodium Chloride 1,000 ml @ 100 mls/hr Q10H IV 01/04/25 02:15 01/05/25 08:09 100 MLS/HR Insulin Glargine 22 units DAILY@1000 SC 01/05/25 10:00 01/05/25 09:47 22 UNITS Acetaminophen/ Hydrocodone Bitart 1 tab Q4HPRN PRN PO 01/04/25 21:15 01/04/25 21:21 1 TAB Potassium Chloride 100 ml @ 50 mls/hr Q2H IV 01/05/25 09:00 01/05/25 12:59 UNV objective General Appearance: Alert, Oriented X3, Cooperative, No acute distress, mild distress, moderate distress, severe distress, Other Lungs: Clear to auscultation, Normal air movement, Other Cardiovascular: Regular rate, Normal S1, Normal S2, No murmurs, Gallops, Rubs, Other Abdomen: Normal bowel sounds, Soft, No tenderness, No hepatospenomegaly, No masses, Other laboratory and microbiology Laboratory Tests 01/05/25 05:02 01/04/25 05:17 Test 01/05/25 05:02 Range/Units Serum Glucose 86 74-106 mg/dL Problems(with codes): (1) Projectile vomiting with nausea (2) DKA (diabetic ketoacidosis) (3) Noncompliance (4) Hiatal hernia with gastroesophageal reflux disease and esophagitis Prognosis Plan Patient is stable with no active bleeding Patient refused an endoscopy at this time Patient is tolerating and advance diet Continue Protonix 40 mg p.o. twice a day Continue Carafate 1 g p.o. 4 times a day DC aspirin NSAIDs smoking alcohol Outpatient follow up with GI Services in 4-6 weeks to discuss elective endoscopic if he has ongoing symptoms I will be out of town this weekend and if any further GI intervention is required then please contact GI physician on-call Plan discussed with: Other (Jnaneth Fox) DIEGO BECERRA MD January 05, 2025 12:34
[2025-01-05 13:00] VITALS: BP 136/94; PULSE 80; RESP 18; TEMP 98.2; O2SAT 100
--- NOTE | 2025-01-05 16:15 | DVHDSRES ---
Discharge Summary Date of Admission Resident Creating Document: ELIO SUMNER RESIDENT January 03, 2025 at 03:30 Date of Discharge: January 05, 2025 Admitting Diagnosis Generalized weakness Labs/Diagnostic Data: Laboratory Results Test 01/05/25 06:30 01/05/25 05:02 01/04/25 05:17 01/03/25 09:30 POC Glucose 118 mg/dl (70-106) Sodium Level 141 mmol/L (136-145) Potassium Level 2.9 mmol/L (3.5-5.1) Chloride Level 109 mmol/L (98-107) Carbon Dioxide Level 25 mmol/L (20-31) Anion Gap 7 (5-15) Blood Urea Nitrogen 13 mg/dL (9-23) Creatinine 0.76 mg/dL (0.700-1.30) Glomerular Filtration Rate Calc 121 mL/min (>90) BUN/Creatinine Ratio 17.1 (10.0-20.0) Serum Glucose 86 mg/dL (74-106) Calcium Level 9.2 mg/dL (8.7-10.4) White Blood Count 6.4 10^3/uL (4.4-10.8) Red Blood Count 4.65 10^6/uL (4.5-5.90) Hemoglobin 9.1 g/dL (13.5-17.5) Hematocrit 28.5 % (41.0-53.0) Mean Corpuscular Volume 61.2 fL (80.0-100.0) Mean Corpuscular Hemoglobin 19.5 pg (28.0-32.0) Mean Corpuscular Hemoglobin Concent 31.8 g/dL (32.0-36.0) Red Cell Distribution Width 21.2 % (11.8-14.3) Platelet Count 169 10^3/uL (140-450) Mean Platelet Volume 8.1 fL (6.9-10.8) Neutrophils (%) (Auto) 83.7 % (37.0-80.0) Lymphocytes (%) (Auto) 8.4 % (10.0-50.0) Monocytes (%) (Auto) 7.7 % (0.0-12.0) Eosinophils (%) (Auto) 0.0 % (0.0-7.0) Basophils (%) (Auto) 0.2 % (0.0-2.0) Neutrophils # (Auto) 5.4 10 ^3/uL (1.6-8.6) Lymphocytes # (Auto) 0.5 10 ^3/uL (0.4-5.4) Monocytes # (Auto) 0.5 10 ^3/uL (0-1.3) Eosinophils # (Auto) 0 10 ^3/uL (0-0.8) Basophils # (Auto) 0 10 ^3/uL (0-0.2) Nucleated Red Blood Cells 0.1 % Influenza Type A Antigen Negative (Negative) Influenza Type B Antigen Negative (Negative) SARS-CoV-2 Antigen (Rapid) Negative (NEGATIVE) Test 01/03/25 08:05 01/03/25 06:15 01/03/25 06:08 01/03/25 06:00 Troponin I High Sensitivity 4 ng/L (</=54) Hemoglobin A1c 10.4 % A1C (<5.7) Iron Level 87 ug/dL (65-175) Total Iron Binding Capacity 414 ug/dL (250-425) Percent Iron Saturation 21.0 % (20-55) Ferritin 28.7 ng/mL (22-322) Total Bilirubin 0.7 mg/dL (0.2-1.0) Aspartate Amino Transferase (AST) < 8 U/L (13-40) Alanine Aminotransferase (ALT) 11 U/L (7-40) Alkaline Phosphatase 116 U/L (46-116) Total Protein 8.0 g/dL (5.7-8.2) Albumin 5.0 g/dL (3.2-4.8) Folic Acid 30.43 ng/mL (>5.38) Blood Gas Specimen Type Arterial Blood Gas Sample Site Right radial Blood Gas Patient Temperature 37.0 Arterial Blood Date Drawn [id number] Arterial Blood pH 7.385 (7.350-7.450) Arterial Blood Partial Pressure CO2 23.6 mmHg (35.0-48.0) Arterial Blood Partial Pressure O2 96.6 mmHg (83.0-108.0) Arterial Blood HCO3 13.8 mmol/L (21.0-28.0) Arterial Blood Oxygen Saturation 96.6 % (94.0-98.0) Arterial Blood Base Excess -9.5 mmol/L (-2.0-3.0) Arterial Blood Oxyhemoglobin 95.4 % (94.0-98.0) Arterial Blood Carboxyhemoglobin 0.7 % (0.5-1.5) Arterial Blood Methemoglobin 0.5 % (0.0-1.5) Erik Test Yes Blood Gas Total Hemoglobin 11.50 g/dL (13.5-17.5) Blood Gas Modality Room air FiO2 % 21.0 Urine Color Colorless (Yellow) Urine Clarity Clear (Clear) Urine pH 5.0 (5.0-9.0) Urine Specific [place] 1.014 (1.001-1.035) Urine Protein Negative (Negative) Urine Ketones 4+ (Negative) Urine Blood Negative /uL (Negative) Urine Nitrite Negative (Negative) Urine Bilirubin Negative (Negative) Urine Urobilinogen Normal mg/dL (Negative) Urine Leukocyte Esterase Negative /uL (Negative) Urine RBC 1 /hpf (0 - 3) Urine Microscopic WBC < 1 /HPF (0-3) Urine Squamous Epithelial Cells None seen /hpf (<5) Urine Bacteria None seen /hpf (None Seen) Urine Hyaline Casts Few /lpf (0 - 2) Urine Creatinine 20.61 mg/dL (30.0-125.0) Urine Protein/Creatinine Ratio 0.75 Urine Sodium 51 mmol/L (40-220) Urine Glucose 4+ mg/dL (Normal) Urine Total Protein 15.4 mg/dL (1-14) Urine Opiates Screen Neg (NEGATIVE) Urine Fentanyl Screen Neg (NEGATIVE) Urine Barbiturates Screen Neg (NEGATIVE) Urine Phencyclidine Screen Neg (NEGATIVE) Urine Amphetamines Screen Neg (NEGATIVE) Urine Benzodiazepines Screen Neg (NEGATIVE) Urine Cocaine Screen Neg (NEGATIVE) Urine Cannabinoids Screen Neg (NEGATIVE) Test 01/03/25 03:50 01/03/25 01:59 01/03/25 01:27 Direct Bilirubin 0.2 mg/dL (<0.3) Beta-Hydroxybutyric Acid > 4.500 mmol/L (< 0.4) Thyroid Stimulating Hormone (TSH) 1.06 uIU/mL (0.55-4.78) Plasma/Serum Blood Alcohol 4.1 mg/dL (<10) Blood Gas Liter Flow 0.00 Phosphorus Level 6.7 mg/dL (2.4-5.1) Magnesium Level 2.3 mg/dL (1.6-2.6) Lipase 27 U/L (12-53) Other Laboratory Tests 01/05/25 05:02 01/04/25 05:17 Brief Hx & Hospital Course: Patient is 34 year old male with past medical history of diabetes mellitus type 1, paroxysmal atrial fibrillation who came to the hospital with a chief complaint of generalized weakness, as per patient he forgets taking insulin and blood sugar was ranging where he high that prompted visit to the hospital. Initially patient found to have diabetic ketoacidosis with anion gap at 37. Patient initiated on insulin drip, IV fluid with serial BMP. Over the course of hospitalization patient's diabetic ketoacidosis resolved with anion gap less than 15. Given patient has intractable nausea and vomiting, GI consultation was done however patient refused upper GI endoscopy. Over the course of hospitalization upper GI symptoms also resolved without active upper GI bleed. Continued on Protonix 40 mg p daily. IV insulin drip transitioned to Lantus 20 units once daily with insulin sliding scale, diet advanced as per toleration. Given patient is hemodynamically stable, resolved diabetic ketoacidosis, no active symptoms, patient will be discharged home and advised to follow with primary care physician in outpatient setting. Continue home medication including Lantus, regular insulin before each meal, Eliquis for paroxysmal atrial fibrillation. As per patient he has enough supply at home, we will follow up at [facility] clinic in next following visit. Patient has been discharged home. Condition at Discharge: Stable Final Diagnosis/Problems List Diabetic ketoacidosis Diabetes mellitus type 1 Intractable nausea and vomiting due to diabetic ketoacidosis Medication nonadherence Metabolic acidosis CAROL ANN due to VMN Pseudo hyponatremia Hypokalemia Hematemesis likely due to hiatal hernia and esophagitis Paroxysmal atrial fibrillation Discharge Disposition: Home Discharge Instruct/Medications Diet: Consistent carbohydrate Activity: No Restrictions, As Tolerated Follow Up/Referral: -follow up with pcp in 2 weeks, DC clinic in 1 weeks Medications: -continue home medications Discharge Statement: "Patient was advised to return to the ER or call 911 if any headaches, dizziness, shortness of breath, chest pain, abdominal pain, bleeding, fevers, or worsening of medical condition. Patient was counseled about treatment plan, medications, possible side effects, patientverbalized understanding. All questions were answered to the best of my ability. This discharge took greater then 30 minutes in planning, reviewing documentation, counseling the patient, and discussing with other team members." ASSESSMENT ASSESSMENT Assessment DKA Date of Service: January 05, 2025 Billing Provider: EDDIE TAMAYO MD Common Visit Codes: 68286-YKW/OBS DISCH DAY >30min LYNNETTEKRISS WILLIAMSONEN RESIDENT January 05, 2025 16:15 EDDIE TAMAYO MD January 06, 2025 05:28
[2025-01-05 16:52] VITALS: BP 136/94; PULSE 80; RESP 18; TEMP 98.2; O2SAT 100
[2025-01-09 08:07] LABS: Vitamin B1, Whole Blood 144.2 nmol/L (66.5-200.0)
== END 2025-01-05 17:45 | disposition home or self-care (01) | DRG 420 ==
LOC: EDBD 01:14 → ER 01:18 → OVERFLOW 03:30 → TELE-CENTR 01-05 02:06
PROVIDERS: ADMIT Internal Medicine; ATTEND Emergency Medicine
DX: E11.10 Type 2 diabetes mellitus with ketoacidosis without coma (principal); N17.0 Acute kidney failure with tubular necrosis; D64.9 Anemia, unspecified; I10 Essential (primary) hypertension; K52.9 Noninfective gastroenteritis and colitis, unspecified; E87.6 Hypokalemia; Z20.822 Contact with and (suspected) exposure to COVID-19; I48.0 Paroxysmal atrial fibrillation; K44.9 Diaphragmatic hernia without obstruction or gangrene; K20.90 Esophagitis, unspecified without bleeding; Z91.148 Patient's other noncompliance with medication regimen for other reason; Z79.4 Long term (current) use of insulin; Z87.11 Personal history of peptic ulcer disease; Z87.19 Personal history of other diseases of the digestive system
CPT/HCPCS: 36415; 36600; 71045; 80048; 80053; 80076; 80307; 80320; 81001; 82010; 82570; 82728; 82746; 82805; 82962; 83036; 83540; 83550; 83690; 83735; 84100; 84156; 84300; 84425; 84443; 84484; 85025; 86850; 86900; 86901; 87040; 87086; 87426; 87804; 93005; 96361; 96374; 96375; 97163; 99291; G0378; J1815; J2405; J2470; J3480; J3490; J7060

== ENCOUNTER 2025-05-09 20:51 | Emergency (ER) | payer MEDICAID ==
[~2025-05-09] VITALS: Ht 172.7 cm; Wt 63.6 kg
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
[2025-05-09 21:30] VITALS: TEMP 97.6
[2025-05-09 21:56] LABS: Nucleated Red Blood Cells % 0.1 %
[2025-05-09 21:58] LABS: Hematocrit 35.9 % (41.0-53.0); Hemoglobin 11.2 g/dL (13.5-17.5); Mean Corpuscular Hemoglobin 19.5 pg (28.0-32.0); Mean Corpuscular Volume 62.3 fL (80.0-100.0)
[2025-05-09 22:06] LABS: Alanine Aminotransferase 11 U/L (7-40); Albumin 4.1 g/dL (3.2-4.8); Anion Gap 15 (5-15); BUN/Creatinine Ratio 6.3 (10.0-20.0); Blood Urea Nitrogen 11 mg/dL (9-23); Calcium 8.8 mg/dL (8.7-10.4); Chloride 107 mmol/L (98-107); Potassium 4.0 mmol/L (3.5-5.1); Sodium 142 mmol/L (136-145); Total Protein 7.1 g/dL (5.7-8.2)
[2025-05-09 22:09] LABS: Alkaline Phosphatase 119 U/L (46-116); Bilirubin, Total 0.2 mg/dL (0.2-1.0); Carbon Dioxide 20 mmol/L (20-31)
[2025-05-09 22:11] LABS: Glucose 461 mg/dL (74-106)
[2025-05-09 22:13] LABS: Anisocytosis Moderate
[2025-05-09] MEDS: SODIUM CHLORIDE 0.9% 1,000 ML IV ONE (22:27)
[2025-05-09 22:44] LABS: Urine Protein, UAD Negative (Negative)
[2025-05-09 22:45] LABS: Amphetamine Screen, Urine Neg (NEGATIVE); Barbiturate Scree,Urine Neg (NEGATIVE); Benzodiazephine Screen, Urine Neg (NEGATIVE); Cannabinoid Screen, Urine Neg (NEGATIVE); Cocaine Screen, Urine Neg (NEGATIVE); Opiate Scree,Urine Neg (NEGATIVE); Phencyclidine Screen, Urine Neg (NEGATIVE)
--- NOTE | 2025-05-09 22:54 | DVH ---
CLINICAL HISTORY: Mental status change. TECHNIQUE: Helical scanning was performed of the head from the skull base to the vertex. Multiplanar reconstructions were performed. This exam was performed according to our departmental dose optimizat ion program. Up-to-date CT equipment and radiation dose reduction techniques are utilized as appropri ate. CTDI 58 DLP 1027 COMPARISON: CT HEAD WITHOUT CONTRAST on DOS: 10/07/24, XY NECK FOR SOFT TISSUE on DOS: 04/28/23 FINDINGS: There is no evidence for acute intracranial hemorrhage, acute ischemic changes, mass, mass effect, or extra-axial fluid collection. There is no hydrocephalus or midline shift. There is no effacement of the cerebral sulci and basal subarachnoid cisterns. The ramsay-white matter differentiation is well elma ntained. The imaged paranasal sinuses are clear. IMPRESSION: NO ACUTE INTRACRANIAL ABNORMALITY SEEN.
[2025-05-09] MEDS: InsuLIN REG 1unit/0.01ml Soln (100units/ml) IV ONE (23:06)
[2025-05-09 23:30] VITALS: BP 98/58; PULSE 106; RESP 20; O2SAT 96
== END 2025-05-10 00:10 | disposition home or self-care (01) ==
LOC: EDBD 20:51 → ER 20:51
DX: F10.129 Alcohol abuse with intoxication, unspecified (principal); E11.9 Type 2 diabetes mellitus without complications; Z79.899 Other long term (current) drug therapy; Z87.11 Personal history of peptic ulcer disease; Z91.199 Patient's noncompliance with other medical treatment and regimen due to unspecified reason; Y90.9 Presence of alcohol in blood, level not specified
CPT/HCPCS: 36415; 70450; 80053; 80307; 80320; 81001; 82140; 82947; 85025; 96361; 96374; 99285; J1815; J7030; 82962